=== PATIENT | male | born 1960 | race Caucasian/White ===

== ENCOUNTER 2017-07-26 12:57 | Emergency (ER) | payer BC, OTHER ==
--- NOTE | 2017-07-26 13:46 | ERPHSYRPT ---
- History of Present Illness Time Seen by Provider: 07/26/17 13:35 Historian: patient Exam Limitations: no limitations Patient Subjective Stated Complaint: Left sided abdominal pain with radiation into chest after eating. Triage Nursing Assessment: Pt presents to the ED with complaints of left sided abdominal pain with radiation into chest, nausea associated with pain. Pt denies chest pain on arrival. States pain began shortly after eating. No distress noted. Skin PWD. Physician History: 57 y/o male comes to the ER with acute onset left sided abdominal and chest pain that started this afternoon after eating. Pt states that he noticed a pressure on the left side of his chest and then on the left side of his abdomen. Pt describes the pain as sharp, intermittent, as high as 10/10 and upon arrival the pain went away. Pt denies any fever, chills, shortness of breath, dizziness, diarrhea, nausea, vomiting, constipation or urinary symptoms. Timing/Duration: today Activities at Onset: none Quality: sharpness Abdominal Pain Onset Location: LLQ Pain Radiation: chest Severity of Pain-Max: severe Severity of Pain-Current: none Modifying Factors: Improves With: nothing Associated Symptoms: denies symptoms Previous symptoms: no prior history Allergies/Adverse Reactions: No Known Drug Allergies Allergy (Verified 12/27/14 10:01) Home Medications: Hydrochlorothiazide 25 mg [hydroDIURIL 25 MG] 25 mg DAILY 06/03/14 [ History] Lisinopril 5 mg [Zestril 5 MG] 40 mg DAILY 06/03/14 [History] Albuterol Sulfate [Proventil Hfa] 2 puffs IH Q12H PRN PRN 12/27/14 [History] Esomeprazole Magnesium [Nexium 24Hr] 2 tab PO DAILY 12/27/14 [History] Atorvastatin Calcium 20 mg PO DAILY 07/26/17 [History] Hx Tetanus, Diphtheria Vaccination/Date Given: No Hx Influenza Vaccination/Date Given: No - Review of Systems Constitutional: No Fever, No Chills Eyes: No Symptoms Ears, Nose, & Throat: No Symptoms Respiratory: No Cough, No Dyspnea Cardiac: Chest Pain, No Edema, No Syncope Abdominal/Gastrointestinal: Abdominal Pain, No Nausea, No Vomiting, No Diarrhea Genitourinary Symptoms: No Dysuria Musculoskeletal: No Back Pain, No Neck Pain Skin: No Rash Neurological: No Dizziness, No Focal Weakness, No Sensory Changes Psychological: No Symptoms Endocrine: No Symptoms All Other Systems: Reviewed and Negative - Past Medical History Pertinent Past Medical History: Yes Neurological History: No Pertinent History ENT History: Cataracts Cardiac History: Hypertension Respiratory History: No Pertinent History Endocrine Medical History: No Pertinent History Musculoskeletal History: No Pertinent History GI Medical History: GERD History: No Pertinent History Psycho-Social History: No Pertinent History Male Reproductive Disorders: No Pertinent History Other Medical History: SEASONAL ALLERGIES, R eye possible cataract forming - Past Surgical History Past Surgical History: Yes Neuro Surgical History: No Pertinent History Cardiac: No Pertinent History Respiratory: No Pertinent History Gastrointestinal: Appendectomy Genitourinary: No Pertinent History Musculoskeletal: Joint Replacement, Other Male Surgical History: No Pertinent History Other Surgical History: Left broken arm surgical reppair, RIGHT HIP REPLACED 2013 - Social History Smoking Status: Former smoker How long have you smoked: 13 years + Exposure to second hand smoke: No Drug Use: none Patient Lives Alone: No - Nursing Vital Signs Nursing Vital Signs: Initial Vital Signs Temperature 97.8 F 07/26/17 12:58 Pulse Rate 93 H 07/26/17 12:58 Respiratory Rate 20 07/26/17 12:58 Blood Pressure 170/85 07/26/17 12:58 O2 Sat by Pulse Oximetry 99 07/26/17 12:58 Pain Scale Pain Intensity 0 - Physical Exam General Appearance: no apparent distress, alert Eye Exam: PERRL/EOMI, eyes nml inspection Ears, Nose, Throat Exam: normal ENT inspection, pharynx normal, moist mucous membranes Neck Exam: normal inspection, non-tender, supple, full range of motion Respiratory Exam: normal breath sounds, lungs clear, No chest tenderness, No respiratory distress Cardiovascular Exam: regular rate/rhythm, normal heart sounds Gastrointestinal/Abdomen Exam: soft, No tenderness, No mass Back Exam: normal inspection, normal range of motion, No CVA tenderness, No vertebral tenderness Extremity Exam: normal inspection, normal range of motion, pelvis stable Neurologic Exam: alert, oriented x 3, cooperative, normal mood/affect, nml cerebellar function, sensation nml, No motor deficits Skin Exam: normal color, warm, dry SpO2: 99 Oxygen Delivery: Room Air - Course Nursing assessment & vital signs reviewed: Yes EKG Interpreted by Me: RATE, NORMAL AXIS, NORMAL INTERVALS, NORMAL QRS, Non- specific ST Changes Ordered Tests: Active Orders 24 hr Category Date Time Status Monument Installer STAT Care 07/26/17 13:29 Active EKG-ER Only STAT Care 07/26/17 13:27 Active IV Insertion STAT Care 07/26/17 13:27 Active ABDOMEN AND PELVIS W&WO CONTRA [CT] Stat Exams 07/26/17 13:41 Completed CHEST 1 VIEW (PORTABLE) Stat Exams 07/26/17 13:28 Completed AMYLASE Stat Lab 07/26/17 13:40 Completed CBC W DIFF Stat Lab 07/26/17 13:27 Completed CMP Stat Lab 07/26/17 13:40 Completed D-DIMER QUANTITATION Stat Lab 07/26/17 13:40 Completed LIPASE Stat Lab 07/26/17 13:40 Completed TROPONIN Q3H Lab 07/26/17 13:40 Completed UA W/RFX UR CULTURE Stat Lab 07/26/17 13:42 Completed Medication Summary Discontinued Medications Generic Name Dose Route Start Last Admin Trade Name Freq PRN Reason Stop Dose Admin Ciprofloxacin 500 mg 07/26/17 15:38 07/26/17 15:47 Cipro 500 Mg PO 07/26/17 15:39 500 mg ONCE ONE Administration Ciprofloxacin Confirm 07/26/17 15:45 Cipro 500 Mg Administered 07/26/17 15:46 Dose 500 mg .ROUTE .STK-MED ONE Metronidazole 500 mg 07/26/17 15:38 07/26/17 15:47 Flagyl 500 Mg PO 07/26/17 15:39 500 mg STAT ONE Administration Metronidazole Confirm 07/26/17 15:46 Flagyl 500 Mg Administered 07/26/17 15:47 Dose 500 mg .ROUTE .STK-MED ONE Lab/Rad Data: Laboratory Result Diagrams 07/26/17 13:27 07/26/17 13:40 Laboratory Results 07/26/17 07/26/17 07/26/17 Range/Units 13:42 13:40 13:40 WBC (4.0-10.5) K/mm3 RBC (4.1-5.6) M/mm3 Hgb (12.5-18.0) gm/dl Hct (42-50) % MCV (78-100) fl MCH (26-32) pg MCHC (32-36) g/dl RDW (11.5-14.0) % Plt Count (150-450) K/mm3 MPV (6-9.5) fl Gran % (36.0-66.0) % Eos # (Auto) (0-0.5) Absolute Lymphs (auto) (1.0-4.6) Absolute Monos (auto) (0.0-1.3) Lymphocytes % (24.0-44.0) % Monocytes % (0.0-12.0) % Eosinophils % (0.00-5.0) % Basophils % (0.0-0.4) % Absolute Granulocytes (1.4-6.9) Basophils # (0-0.4) D-Dimer 353.28 (215-500) ng/mL Sodium (137-145) mmol/L Potassium (3.5-5.1) mmol/L Chloride (98-107) mmol/L Carbon Dioxide (22-30) mmol/L Anion Gap (5-15) MEQ/L BUN (9-20) mg/dL Creatinine (0.66-1.25) mg/dL Estimated GFR ML/MIN Glucose (74-106) mg/dL Calcium (8.4-10.2) mg/dL Total Bilirubin (0.2-1.3) mg/dL AST (17-59) U/L ALT (0-50) U/L Alkaline Phosphatase (38-126) U/L Troponin I < 0.012 (0.000-0.034) ng/mL Serum Total Protein (6.3-8.2) g/dL Albumin (3.5-5.0) g/dL Amylase (30-110) U/L Lipase (23-300) U/L Ur Collection Type VOID Urine Color YELLOW (YELLOW) Urine Appearance CLEAR (CLEAR) Urine pH 7.0 (5-6) Ur Specific [place] 1.005 (1.005-1.025) Urine Protein NEGATIVE (Negative) Urine Ketones NEGATIVE (NEGATIVE) Urine Blood NEGATIVE (0-5) Tray/ul Urine Nitrite NEGATIVE (NEGATIVE) Urine Bilirubin NEGATIVE (NEGATIVE) Urine Urobilinogen NORMAL (0-1) mg/dL Ur Leukocyte Esterase NEGATIVE (NEGATIVE) Urine Culture Reflexed NO (NO) Urine Glucose NEGATIVE (NEGATIVE) mg/dL Specimen Received 07/26/17 1425 07/26/17 07/26/17 Range/Units 13:40 13:27 WBC 6.5 (4.0-10.5) K/mm3 RBC 4.44 (4.1-5.6) M/mm3 Hgb 13.7 (12.5-18.0) gm/dl Hct 41.0 L (42-50) % MCV 92.3 (78-100) fl MCH 30.9 (26-32) pg MCHC 33.4 (32-36) g/dl RDW 13.1 (11.5-14.0) % Plt Count 223 (150-450) K/mm3 MPV 10.7 H (6-9.5) fl Gran % 65.5 (36.0-66.0) % Eos # (Auto) 0.11 (0-0.5) Absolute Lymphs (auto) 1.57 (1.0-4.6) Absolute Monos (auto) 0.54 (0.0-1.3) Lymphocytes % 24.0 (24.0-44.0) % Monocytes % 8.3 (0.0-12.0) % Eosinophils % 1.7 (0.00-5.0) % Basophils % 0.5 (0.0-0.4) % Absolute Granulocytes 4.28 (1.4-6.9) Basophils # 0.03 (0-0.4) D-Dimer (215-500) ng/mL Sodium 143 (137-145) mmol/L Potassium 4.0 (3.5-5.1) mmol/L Chloride 101 (98-107) mmol/L Carbon Dioxide 29 (22-30) mmol/L Anion Gap 16.9 H (5-15) MEQ/L BUN 11 (9-20) mg/dL Creatinine 0.79 (0.66-1.25) mg/dL Estimated GFR > 60.0 ML/MIN Glucose 115 H (74-106) mg/dL Calcium 9.9 (8.4-10.2) mg/dL Total Bilirubin 0.20 (0.2-1.3) mg/dL AST 22 (17-59) U/L ALT 23 (0-50) U/L Alkaline Phosphatase 78 (38-126) U/L Troponin I (0.000-0.034) ng/mL Serum Total Protein 7.9 (6.3-8.2) g/dL Albumin 4.7 (3.5-5.0) g/dL Amylase 99 (30-110) U/L Lipase 205 (23-300) U/L Ur Collection Type Urine Color (YELLOW) Urine Appearance (CLEAR) Urine pH (5-6) Ur Specific [place] (1.005-1.025) Urine Protein (Negative) Urine Ketones (NEGATIVE) Urine Blood (0-5) Tray/ul Urine Nitrite (NEGATIVE) Urine Bilirubin (NEGATIVE) Urine Urobilinogen (0-1) mg/dL Ur Leukocyte Esterase (NEGATIVE) Urine Culture Reflexed (NO) Urine Glucose (NEGATIVE) mg/dL Specimen Received - Progress Progress: improved Progress Note: 07/26/17 15:38 The patient has not had any pain since arriving to the ER. The CT abd/pelvis shows a mild diverticulitis and will be started on cipro and flagyl. The cardiac workup is within normal limits. - Departure Time of Disposition: 15:39 Departure Disposition: Home Clinical Impression: Diverticulitis, Atypical chest pain Condition: Stable Critical Care Time: No Referrals: MEHDI CRUZ MD [Primary Care Provider] - Instructions: Atypical Chest Pain, Diverticulitis (DC) Additional Instructions: Return to the ER if you should continue to have abdominal pain, chest pain, diarrhea, bloody stools, fever or chills. Finish the antibiotics until completion. Prescriptions: Ciprofloxacin [Cipro 500 MG] 500 mg PO BID #13 tablet Metronidazole 500 mg [Flagyl 500 MG] 500 mg PO BID #13 tablet
--- NOTE | 2017-07-26 13:53 | XRAY ---
Indication: Chest pain. Comparison: June 03, 2014. Portable apical lordotic chest again demonstrates normal heart and lungs. Bony thorax intact again with minimal degenerative changes. No new/acute findings.
[2017-07-26 14:10] LABS: BASOPHIL % 0.5 % (0.0-0.4); Basophil (Absolute #) 0.03 (0-0.4); Eosinophil % 1.7 % (0.00-5.0); Eosinophil (Absolute #) 0.11 (0-0.5); Granulocyte Absolute (ANC) 4.28 (1.4-6.9); Granulocytes % 65.5 % (36.0-66.0); Hemoglobin 13.7 gm/dl (12.5-18.0); Lymphocyte (Absolute #) 1.57 (1.0-4.6); Mean Cell Volume 92.3 fl (78-100); Mean Corpuscular Hemoglobin 30.9 pg (26-32); Mean Corpuscular Hgb Concent. 33.4 g/dl (32-36); Mean Platelet Volume 10.7 fl (6-9.5); Monocyte (Absolute #) 0.54 (0.0-1.3); Monocytes % 8.3 % (0.0-12.0); Platelet Count 223 K/mm3 (150-450); Red Blood Count 4.44 M/mm3 (4.1-5.6); Red Cell Distribution Width 13.1 % (11.5-14.0); White Blood Count 6.5 K/mm3 (4.0-10.5)
[2017-07-26 14:23] LABS: Appearance CLEAR (CLEAR); Specific Gravity 1.005 (1.005-1.025)
[2017-07-26 14:24] LABS: Bilirubin NEGATIVE (NEGATIVE); Blood NEGATIVE Ery/ul (0-5); Glucose NEGATIVE (NEGATIVE); Ketones NEGATIVE (NEGATIVE); Leukocyte Esterase NEGATIVE (NEGATIVE); Nitrite NEGATIVE (NEGATIVE); Protein,Urine Dip NEGATIVE (Negative); Urobilinogen NORMAL mg/dL (0-1)
[2017-07-26 14:27] LABS: ALBUMIN 4.7 g/dL (3.5-5.0); ALKALINE PHOSPHATASE 78 U/L (38-126); AMYLASE 99 U/L (30-110); ANION GAP 16.9 MEQ/L (5-15); BLOOD UREA NITROGEN 11 mg/dL (9-20); CHLORIDE 101 mmol/L (98-107); Calcium 9.9 mg/dL (8.4-10.2); Carbon Dioxide 29 mmol/L (22-30); Creatinine 1 0.79 mg/dL (0.66-1.25); Glucose 115 mg/dL (74-106); LIPASE 205 U/L (23-300); SGOT/AST 22 U/L (17-59); SGPT/ALT 23 U/L (0-50); SODIUM 143 mmol/L (137-145); Total Protein 7.9 g/dL (6.3-8.2)
--- NOTE | 2017-07-26 15:35 | XRAY ---
Indication: Left abdominal pain. Kidney stone versus diverticulitis. Multiple contiguous axial images obtained through the abdomen and pelvis prior to and following 80 cc Isovue 370 contrast. Comparison: None Lung bases demonstrates minimal bibasilar fibrosis/scarring. No infiltrate or effusion. Heart is not enlarged. Images through the pelvis are limited due to extreme beam artifact from bilateral hip prostheses. No renal calculus or evidence for obstructive uropathy in either kidneys or proximal ureters. Normal visceral enhancement and renal excretion. 2.3 cm left renal cyst. No suspicious solid renal mass or perinephric fluid/stranding. Noncontrasted stomach and bowel loops appear nonobstructed. Small 2.4 cm gastric diverticulum near the cardiac portion of the stomach. Previous reported appendectomy. Mild diffuse scattered colonic fecal debris throughout. Also scattered colonic diverticulosis greatest in the descending/sigmoid. Minimal diverticulitis junction of descending and sigmoid. No free fluid/air. Remaining liver, gallbladder, pancreas, spleen, adrenal glands, kidneys, ureters, and bladder appear unremarkable. Mild aortoiliac calcifications. No AAA or pathologic retroperitoneal lymphadenopathy. Osseous structures intact with mild multilevel degenerative spondylosis, greatest at the lumbosacral junction. Impression: 1. Images of the pelvis limited due to artifact from bilateral hip prostheses. 2. Negative renal calculus or evidence for obstructive uropathy. Left renal cyst. 3. Scattered colonic diverticulosis with minimal diverticulitis junction descending and sigmoid colon. No complications. 4. Mild fecal stasis without obstruction and small gastric diverticulum. 5. Remaining CT abdomen/pelvis with and without contrast exam is negative. CT DI 23.45
[2017-07-26] MEDS ORDERED: Flagyl 500 MG PO ONE (15:38)
[2017-07-26] MEDS ORDERED: Cipro 500 MG PO ONE (15:38)
[2017-07-26] MEDS ORDERED: Cipro 500 MG ONE (15:45)
[2017-07-26] MEDS ORDERED: Flagyl 500 MG ONE (15:46)
[2017-07-26 16:01] VITALS: BP 155/83; PULSE 68
[2017-07-26 16:37] VITALS: O2SAT 99
== END 2017-07-26 16:01 | disposition home or self-care (01) ==
LOC: ED 12:57
DX: K57.92 Diverticulitis of intestine, part unspecified, without perforation or abscess without bleeding (principal); R07.89 Other chest pain; Z79.899 Other long term (current) drug therapy
CPT/HCPCS: 36415; 71045; 74178; 80053; 81002; 82150; 83690; 84484; 85025; 85379; 93005; 93041; 99283; 99284; A9270-GY

== ENCOUNTER 2017-08-09 06:06 | Emergency (ER) | payer BC ==
--- NOTE | 2017-08-09 06:54 | ERPHSYRPT ---
- History of Present Illness Time Seen by Provider: 08/09/17 06:33 Source: patient Exam Limitations: no limitations Patient Subjective Stated Complaint: trying to have a BM generalized abdominal pain.. states rectum is coming out. Triage Nursing Assessment: alert and oriented distressed. staes abdominal pain and rectum coming ouot. abdomen soft non tender on palpation. no diifficulty with urination.. trying to have a BM and has been straining. Physician History: The patient is a 57-year-old male with his complaining of trying to have a bowel movement last night and now feels like there is tissue or his rectum has become exposed. He did not try to push it back in because he was afraid. He had a colonoscopy 8 years ago. He was scheduled to have another colonoscopy in May but had to change the plans. He is scheduled to see Dr. Cruz tomorrow to have a repeat colonoscopy. 2 weeks ago he was diagnosed by CT scan and clinically with diverticulitis and was taking metronidazole and ciprofloxacin. For the past 2 or 3 days he has had a diet high in liquids. Last night he was attempting to have bowel movements but instead was having a lot of gas. The colonoscopy 8 years ago found some minor polyps. His past medical history is significant for diverticulitis, appendicitis that had ruptured, colonic polyps, and hypertension. Timing/Duration: today Severity: mild Modifying Factors: Improves With: nothing Associated Symptoms: denies symptoms, No nausea, No vomiting Allergies/Adverse Reactions: No Known Drug Allergies Allergy (Verified 12/27/14 10:01) Home Medications: Hydrochlorothiazide 25 mg [hydroDIURIL 25 MG] 25 mg DAILY 06/03/14 [ History] Lisinopril 5 mg [Zestril 5 MG] 40 mg DAILY 06/03/14 [History] Albuterol Sulfate [Proventil Hfa] 2 puffs IH Q12H PRN PRN 12/27/14 [History] Esomeprazole Magnesium [Nexium 24Hr] 2 tab PO DAILY 12/27/14 [History] Atorvastatin Calcium 20 mg PO DAILY 07/26/17 [History] Hx Tetanus, Diphtheria Vaccination/Date Given: No Hx Influenza Vaccination/Date Given: No - Review of Systems Constitutional: No Fever, No Chills Eyes: No Symptoms Ears, Nose, & Throat: No Symptoms Respiratory: No Cough, No Dyspnea Cardiac: No Chest Pain, No Edema, No Syncope Abdominal/Gastrointestinal: Constipation, No Nausea, No Vomiting Genitourinary Symptoms: No Dysuria Musculoskeletal: No Back Pain, No Neck Pain Skin: No Rash Neurological: No Dizziness, No Focal Weakness, No Sensory Changes Psychological: No Symptoms Endocrine: No Symptoms Hematologic/Lymphatic: No Symptoms Immunological/Allergic: No Symptoms All Other Systems: Reviewed and Negative - Past Medical History Pertinent Past Medical History: Yes Neurological History: No Pertinent History ENT History: Cataracts Cardiac History: Hypertension Respiratory History: No Pertinent History Endocrine Medical History: No Pertinent History Musculoskeletal History: No Pertinent History GI Medical History: GERD History: No Pertinent History Psycho-Social History: No Pertinent History Male Reproductive Disorders: No Pertinent History Other Medical History: SEASONAL ALLERGIES, R eye possible cataract forming - Past Surgical History Past Surgical History: Yes Neuro Surgical History: No Pertinent History Cardiac: No Pertinent History Respiratory: No Pertinent History Gastrointestinal: Appendectomy Genitourinary: No Pertinent History Musculoskeletal: Joint Replacement, Other Male Surgical History: No Pertinent History Other Surgical History: Left broken arm surgical reppair, RIGHT HIP REPLACED 2013 - Social History Smoking Status: Former smoker How long have you smoked: 13 years + Exposure to second hand smoke: No Drug Use: none Patient Lives Alone: No - Nursing Vital Signs Nursing Vital Signs: Initial Vital Signs Temperature 97.7 F 08/09/17 06:10 Pulse Rate 88 08/09/17 06:10 Respiratory Rate 20 08/09/17 06:10 Blood Pressure 181/88 08/09/17 06:10 O2 Sat by Pulse Oximetry 100 08/09/17 06:10 Pain Scale Pain Intensity 4 - Physical Exam General Appearance: anxiety (Pt is anxious.) Eye Exam: PERRL/EOMI, eyes nml inspection Ears, Nose, Throat Exam: normal ENT inspection, TMs normal, pharynx normal, moist mucous membranes Neck Exam: normal inspection, non-tender, supple, full range of motion Respiratory Exam: normal breath sounds, lungs clear, No respiratory distress Cardiovascular Exam: regular rate/rhythm, normal heart sounds, normal peripheral pulses Gastrointestinal/Abdomen Exam: soft, other (BS are hyperactive. Abd is typanitic to percussion.), No tenderness Rectal Exam: normal rectal tone, hemorrhoids (Examination of the rectum shows numerous small prolapsed external hemorrhoids. No thrombosis was seen. Most of the hemorrhoids could be easily reduced with the patient noticing relief.) Back Exam: normal inspection, normal range of motion, No CVA tenderness, No vertebral tenderness Extremity Exam: normal inspection, normal range of motion, pelvis stable Neurologic Exam: alert, oriented x 3, cooperative, normal mood/affect, nml cerebellar function, nml station & gait, sensation nml, No motor deficits Skin Exam: normal color, warm, dry, No rash Lymphatic Exam: No adenopathy SpO2 Interpretation: normal SpO2: 100 Oxygen Delivery: Room Air - Progress Progress: improved Progress Note: 08/09/17 07:03 The hemorrhoids were manually reduced. An abdominal x-ray was offered but the patient declined. Counseled pt/family regarding: diagnosis, need for follow-up - Departure Time of Disposition: 07:02 Departure Disposition: Home Clinical Impression: Hemorrhoids, Hemorrhoids that prolapse with straining and require manual replacement back inside anal canal, Anxiety Condition: Stable Critical Care Time: No Referrals: MEHDI CRUZ MD [Primary Care Provider] - Additional Instructions: You had hemorrhoids that were prolapsed due to excessive straining to have a bowel movement. The hemorrhoids were reduced. In the future if you are having any difficulty with having a bowel movement, please after becoming well hydrated , take one bottle of magnesium citrate or similar preparation from over-the- counter. Follow-up tomorrow with Dr. Cruz as previously scheduled.
[2017-08-09 07:12] VITALS: BP 168/84; PULSE 84; O2SAT 98
== END 2017-08-09 07:11 | disposition home or self-care (01) ==
LOC: ED 06:06
DX: K64.2 Third degree hemorrhoids (principal); F41.9 Anxiety disorder, unspecified; Z79.899 Other long term (current) drug therapy
CPT/HCPCS: 99281; 99283

== ENCOUNTER 2017-08-19 16:37 | Observation (INO) | payer BC ==
[2017-08-19] MEDS ORDERED: Zofran 4 MG/2 ML VIAL IV ONE (17:17)
[2017-08-19] MEDS ORDERED: Sodium Chloride 0.9% 1000 ML 1,000 ML IV STA ×2 (17:19→18:21)
[2017-08-19] MEDS ORDERED: Hydromorphone 1 mg/ml Ampule IV ONE (17:19)
[2017-08-19] MEDS ORDERED: Zofran 4 MG/2 ML VIAL ONE (17:21)
--- NOTE | 2017-08-19 17:24 | ERPHSYRPT ---
- History of Present Illness Time Seen by Provider: 08/19/17 17:00 Historian: patient Exam Limitations: clinical condition Patient Subjective Stated Complaint: Pt states "I am still having abdominal problems. I was here for constipation recently and they told me to go home and drink mag citrate and i drank one of those and I had a little yellow diarrhea but that was it. It feels like my bowels are locked up. I drink lots of water , I eat fiber, nothing helps." Triage Nursing Assessment: Pt alert and oriented X 3, skin pwd Pt ambulates with an upright steady gait, able to speak in clear full sentences. PT in no apparent respiratory distress. Pt abdomen is soft non tender. Physician History: PATIENT WITH A HISTORY OF HYPERTENSION, AND ASTHMA COMPLAINS OF GENERALIZED ABDOMINAL PAIN X 4 WEEKS, TREATED AN OUTPATIENT WITH DIVERTICULITIS FOR 7 DAYS, 2-3 WEEKS AGO AND STATES PAIN IS PROGRESSIVELY WORSE. ALSO COMPLAINS OF CONSTIPATION, DENIES FEVER, EMESIS OR DIARRHEA OR URINARY SYMPTOMS. ADMITS TO DRINKING EXCESSIVE AMOUNTS OF WATER DAILY. Timing/Duration: week(s) Activities at Onset: none Quality: cramping, throbbing Abdominal Pain Onset Location: generalized abdomen Pain Radiation: no radiation Severity of Pain-Max: severe Severity of Pain-Current: severe Modifying Factors: Improves With: nothing Associated Symptoms: other (CONSTIPATION) Previous symptoms: same symptoms as today Allergies/Adverse Reactions: No Known Drug Allergies Allergy (Verified 12/27/14 10:01) Home Medications: Hydrochlorothiazide 25 mg [hydroDIURIL 25 MG] 25 mg DAILY 06/03/14 [ History] Lisinopril 5 mg [Zestril 5 MG] 40 mg DAILY 06/03/14 [History] Albuterol Sulfate [Proventil Hfa] 2 puffs IH Q12H PRN PRN 12/27/14 [History] Esomeprazole Magnesium [Nexium 24Hr] 2 tab PO DAILY 12/27/14 [History] Atorvastatin Calcium 20 mg PO DAILY 07/26/17 [History] Hx Tetanus, Diphtheria Vaccination/Date Given: Yes Hx Influenza Vaccination/Date Given: No Hx Pneumococcal Vaccination/Date Given: No Immunizations Up to Date: Yes - Review of Systems Constitutional: No Fever, No Chills Eyes: No Symptoms Ears, Nose, & Throat: No Symptoms Respiratory: No Symptoms, No Cough, No Dyspnea Cardiac: No Chest Pain, No Edema, No Syncope Abdominal/Gastrointestinal: Abdominal Pain, No Nausea, No Vomiting, No Diarrhea Genitourinary Symptoms: No Symptoms, No Dysuria Musculoskeletal: No Symptoms, No Back Pain, No Neck Pain Skin: No Symptoms, No Rash Neurological: No Dizziness, No Focal Weakness, No Sensory Changes Psychological: No Symptoms Endocrine: No Symptoms All Other Systems: Reviewed and Negative - Past Medical History Pertinent Past Medical History: Yes Neurological History: No Pertinent History ENT History: Cataracts Cardiac History: Hypertension Respiratory History: No Pertinent History Endocrine Medical History: No Pertinent History Musculoskeletal History: No Pertinent History GI Medical History: GERD History: No Pertinent History Psycho-Social History: No Pertinent History Male Reproductive Disorders: No Pertinent History Other Medical History: SEASONAL ALLERGIES, R eye possible cataract forming - Past Surgical History Past Surgical History: Yes Neuro Surgical History: No Pertinent History Cardiac: No Pertinent History Respiratory: No Pertinent History Gastrointestinal: Appendectomy Genitourinary: No Pertinent History Musculoskeletal: Joint Replacement, Other Male Surgical History: No Pertinent History Other Surgical History: Left broken arm surgical reppair, RIGHT HIP REPLACED 2013 - Social History Smoking Status: Former smoker How long have you smoked: 13 years + Exposure to second hand smoke: Yes Drug Use: none Patient Lives Alone: No - Nursing Vital Signs Nursing Vital Signs: Initial Vital Signs Temperature 98.7 F 08/19/17 16:42 Pulse Rate 84 08/19/17 16:42 Respiratory Rate 18 08/19/17 16:42 Blood Pressure 171/86 08/19/17 16:42 O2 Sat by Pulse Oximetry 100 08/19/17 16:42 Pain Scale Pain Intensity 2 - Physical Exam General Appearance: moderate distress Eye Exam: PERRL/EOMI, eyes nml inspection Ears, Nose, Throat Exam: normal ENT inspection, pharynx normal, moist mucous membranes Neck Exam: normal inspection, non-tender, supple, full range of motion Respiratory Exam: normal breath sounds, lungs clear, No respiratory distress Cardiovascular Exam: regular rate/rhythm, normal heart sounds Gastrointestinal/Abdomen Exam: soft, normal bowel sounds, tenderness ( PERIUMBILICAL TENDERNESS, NO GUARDING OR REBOUND TENDERNESS.) Back Exam: normal inspection, normal range of motion, No CVA tenderness, No vertebral tenderness SpO2: 100 Oxygen Delivery: Room Air - CT Exams Abdomen/Pelvis CT Interpretation: Tele-radiologist Report (no evidence of acute intra- abdominal or pelvic pathology) Ordered Tests: Active Orders 24 hr Category Date Time Status Up Ad Zari ROUTINE Activity 08/19/17 23:19 Ordered Call Admit Doctor for Orders ON ADMISSION Care 08/19/17 23:18 Ordered Code Status Order ROUTINE Care 08/19/17 23:17 Ordered IV Care Q6H Care 08/19/17 23:17 Ordered IV Insertion STAT Care 08/19/17 17:17 Active Intake and Output Q12H Care 08/19/17 23:17 Ordered Oxygen-ED Only NASAL CANNULA 2 lpm Care 08/19/17 17:[address] in Observation ROUTINE Care 08/19/17 23:17 Ordered Vital Signs Q4H Care 08/19/17 23:17 Ordered Clear Liquid Diet 08/19/17 Breakfast Ordered ABDOMEN AND PELVIS W CONTRAST [CT] Stat Exams 08/19/17 17:17 Taken AMYLASE Stat Lab 08/19/17 17:30 Completed BLOOD CULTURE Stat Lab 08/19/17 17:40 Received BMP AM.LAB Lab 08/20/17 04:00 Ordered BMP Stat Lab 08/19/17 20:31 Completed CBC W DIFF AM.LAB Lab 08/20/17 04:00 Ordered CBC W DIFF Stat Lab 08/19/17 17:30 Completed CMP Stat Lab 08/19/17 17:30 Completed LIPASE Stat Lab 08/19/17 17:30 Completed MAGNESIUM Stat Lab 08/19/17 18:00 Completed Occult Blood,Stool Other Stat Lab 08/19/17 17:30 Completed UA W/RFX UR CULTURE Stat Lab 08/19/17 18:21 Completed Oxygen NASAL CANNULA 2 lpm RT 08/19/17 23:17 Ordered Pulse Oximetry CONTINUOUS RT 08/19/17 23:19 Ordered Transfer Order Routine Transfer 08/19/17 Ordered Medication Summary Discontinued Medications Generic Name Dose Route Start Last Admin Trade Name Freq PRN Reason Stop Dose Admin Hydromorphone HCl 1 mg 08/19/17 17:19 08/19/17 17:33 Hydromorphone 1 Mg/Ml Ampule IV 08/19/17 17:20 1 mg STAT ONE Administration Hydromorphone HCl Confirm 08/19/17 17:32 Dilaudid 2 Mg Injection Administered 08/19/17 17:33 Dose 2 mg .ROUTE .STK-MED ONE Sodium Chloride 1,000 mls @ 250 mls/hr 08/19/17 17:19 08/19/17 17:32 Sodium Chloride 0.9% 1000 Ml IV 08/19/17 21:18 250 mls/hr .Q4H STA Administration Sodium Chloride Confirm 08/19/17 17:31 Sodium Chloride 0.9% 1000 Ml Administered 08/19/17 17:32 Dose 1,000 mls @ ud .ROUTE .STK-MED ONE Sodium Chloride 1,000 mls @ 999 mls/hr 08/19/17 18:21 08/19/17 19:11 Sodium Chloride 0.9% 1000 Ml IV 08/19/17 19:21 999 mls/hr .Q1H1M STA Administration Sodium Chloride Confirm 08/19/17 19:10 Sodium Chloride 0.9% 1000 Ml Administered 08/19/17 19:11 Dose 1,000 mls @ ud .ROUTE .STK-MED ONE Ondansetron HCl 4 mg 08/19/17 17:17 08/19/17 17:32 Zofran 4 Mg/2 Ml Vial IV 08/19/17 17:18 4 mg STAT ONE Administration Ondansetron HCl Confirm 08/19/17 17:21 Zofran 4 Mg/2 Ml Vial Administered 08/19/17 17:22 Dose 4 mg .ROUTE .STK-MED ONE Lab/Rad Data: Laboratory Result Diagrams 08/19/17 17:30 08/19/17 20:31 Laboratory Results 08/19/17 08/19/17 08/19/17 Range/Units 20:31 18:21 18:00 WBC (4.0-10.5) K/mm3 RBC (4.1-5.6) M/mm3 Hgb (12.5-18.0) gm/dl Hct (42-50) % MCV (78-100) fl MCH (26-32) pg MCHC (32-36) g/dl RDW (11.5-14.0) % Plt Count (150-450) K/mm3 MPV (6-9.5) fl Gran % (36.0-66.0) % Eos # (Auto) (0-0.5) Absolute Lymphs (auto) (1.0-4.6) Absolute Monos (auto) (0.0-1.3) Lymphocytes % (24.0-44.0) % Monocytes % (0.0-12.0) % Eosinophils % (0.00-5.0) % Basophils % (0.0-0.4) % Absolute Granulocytes (1.4-6.9) Basophils # (0-0.4) Sodium 125 L (137-145) mmol/L Potassium 3.3 L (3.5-5.1) mmol/L Chloride 89 L (98-107) mmol/L Carbon Dioxide 24 (22-30) mmol/L Anion Gap 15.0 (5-15) MEQ/L BUN 6 L (9-20) mg/dL Creatinine 0.68 (0.66-1.25) mg/dL Estimated GFR > 60.0 ML/MIN Glucose 98 (74-106) mg/dL Calcium 8.8 (8.4-10.2) mg/dL Magnesium 1.9 (1.6-2.3) mg/dL Total Bilirubin (0.2-1.3) mg/dL AST (17-59) U/L ALT (0-50) U/L Alkaline Phosphatase (38-126) U/L Serum Total Protein (6.3-8.2) g/dL Albumin (3.5-5.0) g/dL Amylase (30-110) U/L Lipase (23-300) U/L Ur Collection Type VOID Urine Color LT.YELLOW (YELLOW) Urine Appearance CLEAR (CLEAR) Urine pH 8.0 (5-6) Ur Specific [place] 1.005 (1.005-1.025) Urine Protein NEGATIVE (Negative) Urine Ketones SMALL (NEGATIVE) Urine Blood NEGATIVE (0-5) Tray/ul Urine Nitrite NEGATIVE (NEGATIVE) Urine Bilirubin NEGATIVE (NEGATIVE) Urine Urobilinogen NORMAL (0-1) mg/dL Ur Leukocyte Esterase NEGATIVE (NEGATIVE) Urine Culture Reflexed NO (NO) Urine Glucose NEGATIVE (NEGATIVE) mg/dL Stool Occult Blood (Negative) Specimen Received 08/19/17 1820 08/19/17 08/19/17 08/19/17 Range/Units 17:30 17:30 17:30 WBC 8.1 (4.0-10.5) K/mm3 RBC 4.54 (4.1-5.6) M/mm3 Hgb 14.1 (12.5-18.0) gm/dl Hct 39.3 L (42-50) % MCV 86.6 (78-100) fl MCH 31.1 (26-32) pg MCHC 35.9 (32-36) g/dl RDW 12.0 (11.5-14.0) % Plt Count 224 (150-450) K/mm3 MPV 9.9 H (6-9.5) fl Gran % 61.0 (36.0-66.0) % Eos # (Auto) 0.07 (0-0.5) Absolute Lymphs (auto) 2.31 (1.0-4.6) Absolute Monos (auto) 0.76 (0.0-1.3) Lymphocytes % 28.4 (24.0-44.0) % Monocytes % 9.3 (0.0-12.0) % Eosinophils % 0.9 (0.00-5.0) % Basophils % 0.4 (0.0-0.4) % Absolute Granulocytes 4.96 (1.4-6.9) Basophils # 0.03 (0-0.4) Sodium 118 L* (137-145) mmol/L Potassium 3.5 (3.5-5.1) mmol/L Chloride 79 L (98-107) mmol/L Carbon Dioxide 26 (22-30) mmol/L Anion Gap 16.2 H (5-15) MEQ/L BUN 6 L (9-20) mg/dL Creatinine 0.69 (0.66-1.25) mg/dL Estimated GFR > 60.0 ML/MIN Glucose 117 H (74-106) mg/dL Calcium 9.5 (8.4-10.2) mg/dL Magnesium (1.6-2.3) mg/dL Total Bilirubin 0.80 (0.2-1.3) mg/dL AST 23 (17-59) U/L ALT 29 (0-50) U/L Alkaline Phosphatase 79 (38-126) U/L Serum Total Protein 7.6 (6.3-8.2) g/dL Albumin 4.7 (3.5-5.0) g/dL Amylase 77 (30-110) U/L Lipase 147 (23-300) U/L Ur Collection Type Urine Color (YELLOW) Urine Appearance (CLEAR) Urine pH (5-6) Ur Specific [place] (1.005-1.025) Urine Protein (Negative) Urine Ketones (NEGATIVE) Urine Blood (0-5) Tray/ul Urine Nitrite (NEGATIVE) Urine Bilirubin (NEGATIVE) Urine Urobilinogen (0-1) mg/dL Ur Leukocyte Esterase (NEGATIVE) Urine Culture Reflexed (NO) Urine Glucose (NEGATIVE) mg/dL Stool Occult Blood NEGATIVE (Negative) Specimen Received - Progress Progress Note: 08/19/17 17:31 IV NORMAL SALINE 250ML/HR, ZOFRAN 4MG, DILAUDID 1MG IV, ADMINISTERED 2 LITERS NORMAL SALINE OVER 2 HOURS FOR HYPONATREMIA NA-118, IMPROVED TO NA-125 08/19/17 23:11 Discussed with : Man (DISCUSSED WITH DR MCCRACKEN AT 2300 FOR OBSERVATION) - Departure Time of Disposition: 23:19 Departure Disposition: Observation Clinical Impression: INTRACTABLE ABDOMINAL PAIN, HYPONATREMIA Condition: Stable Critical Care Time: No Referrals: MEHDI CRUZ MD [Primary Care Provider] -
[2017-08-19] MEDS ORDERED: Sodium Chloride 0.9% 1000 ML 1,000 ML ONE ×2 (17:31→19:10)
[2017-08-19] MEDS ORDERED: DILAUDID 2 MG INJECTION ONE (17:32)
[2017-08-19 17:52] LABS: BASOPHIL % 0.4 % (0.0-0.4); Basophil (Absolute #) 0.03 (0-0.4); Eosinophil % 0.9 % (0.00-5.0); Eosinophil (Absolute #) 0.07 (0-0.5); Granulocyte Absolute (ANC) 4.96 (1.4-6.9); Hematocrit 39.3 % (42-50); Hemoglobin 14.1 gm/dl (12.5-18.0); Lymphocyte (Absolute #) 2.31 (1.0-4.6); Lymphocytes % 28.4 % (24.0-44.0); Mean Cell Volume 86.6 fl (78-100); Mean Corpuscular Hemoglobin 31.1 pg (26-32); Mean Corpuscular Hgb Concent. 35.9 g/dl (32-36); Mean Platelet Volume 9.9 fl (6-9.5); Monocyte (Absolute #) 0.76 (0.0-1.3); Monocytes % 9.3 % (0.0-12.0); Platelet Count 224 K/mm3 (150-450); Red Blood Count 4.54 M/mm3 (4.1-5.6); White Blood Count 8.1 K/mm3 (4.0-10.5)
[2017-08-19 18:12] LABS: ALBUMIN 4.7 g/dL (3.5-5.0); ALKALINE PHOSPHATASE 79 U/L (38-126); AMYLASE 77 U/L (30-110); ANION GAP 16.2 MEQ/L (5-15); BLOOD UREA NITROGEN 6 mg/dL (9-20); CHLORIDE 79 mmol/L (98-107); Calcium 9.5 mg/dL (8.4-10.2); Carbon Dioxide 26 mmol/L (22-30); Creatinine 1 0.69 mg/dL (0.66-1.25); Glucose 117 mg/dL (74-106); LIPASE 147 U/L (23-300); Potassium 3.5 mmol/L (3.5-5.1); SGOT/AST 23 U/L (17-59); SGPT/ALT 29 U/L (0-50); Total Protein 7.6 g/dL (6.3-8.2)
[2017-08-19 18:14] LABS: SODIUM 118 mmol/L (137-145)
[2017-08-19 18:32] LABS: Appearance CLEAR (CLEAR); Bilirubin NEGATIVE (NEGATIVE); Blood NEGATIVE Ery/ul (0-5); Glucose NEGATIVE (NEGATIVE); Ketones SMALL (NEGATIVE); Leukocyte Esterase NEGATIVE (NEGATIVE); Nitrite NEGATIVE (NEGATIVE); Protein,Urine Dip NEGATIVE (Negative); Specific Gravity 1.005 (1.005-1.025); Urobilinogen NORMAL mg/dL (0-1)
[2017-08-19 20:59] LABS: BLOOD UREA NITROGEN 6 mg/dL (9-20); CHLORIDE 89 mmol/L (98-107); Calcium 8.8 mg/dL (8.4-10.2); Carbon Dioxide 24 mmol/L (22-30); Creatinine 1 0.68 mg/dL (0.66-1.25); Glucose 98 mg/dL (74-106); Potassium 3.3 mmol/L (3.5-5.1); SODIUM 125 mmol/L (137-145)
[2017-08-19] MEDS ORDERED: TYLENOL 325 MG PO PRN (23:17)
[2017-08-19] MEDS ORDERED: DUONEB 0.5-3 MG/3 ml Neb IH PRN (23:17)
[2017-08-19] MEDS ORDERED: DILAUDID 2 MG INJECTION IV PRN (23:17)
[2017-08-19] MEDS ORDERED: Zofran 4 MG/2 ML VIAL IV PRN (23:17)
[2017-08-19] MEDS ORDERED: Zestril 10 MG PO STA (23:22)
[2017-08-19] MEDS ORDERED: PROVENTIL COMMON CANISTER IH PRN (23:58)
[2017-08-20] MEDS: Sodium Chloride 0.9% W/ 20 mEq KCl/LITER 1,000 ML IV SCH ×2 (00:51→10:22)
[2017-08-20 04:56] VITALS: O2SAT 99
[2017-08-20 05:50] LABS: BASOPHIL % 0.3 % (0.0-0.4); Basophil (Absolute #) 0.02 (0-0.4); Eosinophil % 1.6 % (0.00-5.0); Eosinophil (Absolute #) 0.11 (0-0.5); Granulocyte Absolute (ANC) 3.84 (1.4-6.9); Granulocytes % 57.4 % (36.0-66.0); Hematocrit 40.2 % (42-50); Hemoglobin 14.1 gm/dl (12.5-18.0); Lymphocyte (Absolute #) 1.87 (1.0-4.6); Lymphocytes % 27.9 % (24.0-44.0); Mean Cell Volume 88.2 fl (78-100); Mean Corpuscular Hemoglobin 30.9 pg (26-32); Mean Corpuscular Hgb Concent. 35.1 g/dl (32-36); Mean Platelet Volume 10.1 fl (6-9.5); Monocyte (Absolute #) 0.86 (0.0-1.3); Monocytes % 12.8 % (0.0-12.0); Platelet Count 215 K/mm3 (150-450); Red Blood Count 4.56 M/mm3 (4.1-5.6); Red Cell Distribution Width 12.4 % (11.5-14.0); White Blood Count 6.7 K/mm3 (4.0-10.5)
[2017-08-20 05:55] LABS: ANION GAP 14.9 MEQ/L (5-15); BLOOD UREA NITROGEN 5 mg/dL (9-20); CHLORIDE 93 mmol/L (98-107); Calcium 9.3 mg/dL (8.4-10.2); Carbon Dioxide 28 mmol/L (22-30); Glucose 111 mg/dL (74-106); Potassium 4.3 mmol/L (3.5-5.1); SODIUM 132 mmol/L (137-145)
--- NOTE | 2017-08-20 08:35 | XRAY ---
Indication: Bilateral lower abdominal pain one month. History diverticulitis. Multiple contiguous axial images obtained through the abdomen and pelvis using 80cc Isovue 370 contrast only. Comparison: July 26, 2017. Lung bases again demonstrates minimal bibasilar fibrosis/scarring. No infiltrate or effusion. Heart is not enlarged. Images through the pelvis are again limited due to extreme beam artifact from bilateral hip prostheses. Normal visceral enhancement and renal excretion. Stable left renal cyst. Noncontrasted stomach and bowel loops appear nonobstructed. Stable small gastric diverticulum. Previous reported appendectomy. Stable scattered colonic diverticulosis. No evidence of diverticulitis. No free fluid/air. Remaining liver, gallbladder, pancreas, spleen, adrenal glands, kidneys, ureters, and bladder appear unremarkable. Mild aortoiliac calcifications. No AAA or pathologic retroperitoneal lymphadenopathy. Osseous structures intact with mild multilevel degenerative spondylosis, greatest at the lumbosacral junction. Impression: 1. Images of the pelvis again limited due to artifact from bilateral hip prosthesis. 2. Again scattered colonic diverticulosis. No evidence for diverticulitis. 3. Stable small gastric diverticulum and left renal cyst. 4. No new or acute intra-abdominal/pelvic abnormalities. Comment: Preliminary interpretation was made by [facility]. No discrepancy. CT DI 23.03
[2017-08-20] MEDS ORDERED: PROTONIX 40 MG IV IV SCH (10:00)
[2017-08-20 11:40] VITALS: BP 125/74; PULSE 67
--- NOTE | 2017-08-20 11:44 | PCM.SSS ---
History of Present Illness - Chief Complaint Chief Complaint: INTRACTABLE ABDOMINAL PAIN History of Present Illness: is a 57 year old male pt of Dr. Cruz with long hx chronic abd issues who was admitted last night after 3d of increasing abd pain and decreased bowel movements. He was not passing flatus last night and was worried that he might have a blockage so came to the ER. He was having generalized abd pain that moved from place to place, 4-10/10. Increased burping. He had increased his water intake to about three 8 oz glasses all day long. He was found to have low sodium and his abd pain was difficult to control so he was admitted for pain control and hyponatremia. Denies fever or vomiting. He states that last night he started passing flatus, passed it all night long and is feeling much better this morning. He tolerated breakfast but would like to make sure he's not going to vomit before he goes home. - Review of Systems Ears, Nose, & Throat: Nose Congestion, Nose Discharge, Sinus Drainage Abdominal/Gastrointestinal: Abdominal Pain, Nausea, No Vomiting, No Diarrhea Psychological: Anxiety, No Depression, No Suicidal Ideations All Other Systems: Reviewed and Negative Medications & Allergies Home Medications: Home Medication List Hydrochlorothiazide 25 mg [hydroDIURIL 25 MG] 25 mg DAILY 06/03/14 [ History Confirmed 08/19/17] Lisinopril 5 mg [Zestril 5 MG] 40 mg DAILY 06/03/14 [History Confirmed 08/03] Albuterol Sulfate [Proventil Hfa] 2 puffs IH Q12H PRN PRN 12/27/14 [History Confirmed 08/19/17] Esomeprazole Magnesium [Nexium 24Hr] 2 tab PO DAILY 12/27/14 [History Confirmed 08/19/17] Atorvastatin Calcium 20 mg PO DAILY 07/26/17 [History Confirmed 08/19/17] Allergies/Adverse Reactions: Allergies Allergy/AdvReac Type Severity Reaction Status Date / Time No Known Drug Allergies Allergy Verified 12/27/14 10:01 - Past Medical History Past Medical History: Yes Neurological History: No Pertinent History ENT History: Cataracts Cardiac History: Hypertension Respiratory History: No Pertinent History Endocrine Medical History: No Pertinent History Musculoskelatal History: No Pertinent History GI Medical History: GERD History: No Pertinent History Pyscho-Social History: No Pertinent History Male Reproductive Disorders: No Pertinent History Comment: SEASONAL ALLERGIES, R eye possible cataract forming - Past Surgical History Past Surgical History: Yes Neuro Surgical History: No Pertinent History Cardiac History: No Pertinent History Respiratory Surgery: No Pertinent History GI Surgical History: Appendectomy Genitourinary Surgical Hx: No Pertinent History Musculskeletal Surgical Hx: Joint Replacement, Other Male Surgical History: No Pertinent History Other Surgical History: Left broken arm surgical repair, RIGHT HIP REPLACED 2013 - Social History Smoking Status: Former smoker How long have you smoked: 13 years + Exposure to second hand smoke: Yes Alcohol: None Drug Use: none - Physical Exam Vital Signs: Vital Signs - 24 hr Temp Pulse Resp BP Pulse Ox 08/20/17 07:23 98.1 F 66 18 121/64 99 08/20/17 04:00 97.7 F 65 18 111/68 99 08/20/17 00:09 97.9 F 69 17 133/67 98 08/19/17 23:44 69 17 98 08/19/17 23:23 100 08/19/17 23:17 97.6 F 70 140/72 100 08/19/17 20:54 97.6 F 72 16 145/73 98 08/19/17 19:53 82 18 146/84 98 08/19/17 19:14 97.8 F 70 16 122/68 98 08/19/17 17:39 98.6 F 72 16 136/76 99 08/19/17 16:42 98.7 F 84 18 171/86 100 General Appearance: no apparent distress, alert, obese Neurologic Exam: oriented x 3, cooperative Eye Exam: other (eyes clear watery at times) Ears, Nose, Throat Exam: moist mucous membranes Neck Exam: normal inspection, non-tender, No lymphadenopathy Respiratory Exam: normal breath sounds, lungs clear, No crackles/rales, No rhonchi, No wheezing Cardiovascular Exam: regular rate/rhythm, normal heart sounds, No murmur Gastrointestinal/Abdomen Exam: soft, normal bowel sounds, other (ventral hernia present), No tenderness, No distention, No mass, No guarding, No rebound Extremity Exam: normal inspection, No pedal edema, No swelling Skin Exam: normal color, warm, dry, No rash Results - Labs Lab/Micro Results: Lab Results-Last 24 Hours 08/20/17 08/20/17 Range/Units 05:25 05:25 WBC 6.7 (4.0-10.5) K/mm3 RBC 4.56 (4.1-5.6) M/mm3 Hgb 14.1 (12.5-18.0) gm/dl Hct 40.2 L (42-50) % MCV 88.2 (78-100) fl MCH 30.9 (26-32) pg MCHC 35.1 (32-36) g/dl RDW 12.4 (11.5-14.0) % Plt Count 215 (150-450) K/mm3 MPV 10.1 H (6-9.5) fl Gran % 57.4 (36.0-66.0) % Eos # (Auto) 0.11 (0-0.5) Absolute Lymphs (auto) 1.87 (1.0-4.6) Absolute Monos (auto) 0.86 (0.0-1.3) Lymphocytes % 27.9 (24.0-44.0) % Monocytes % 12.8 H (0.0-12.0) % Eosinophils % 1.6 (0.00-5.0) % Basophils % 0.3 (0.0-0.4) % Absolute Granulocytes 3.84 (1.4-6.9) Basophils # 0.02 (0-0.4) Sodium 132 L (137-145) mmol/L Potassium 4.3 (3.5-5.1) mmol/L Chloride 93 L (98-107) mmol/L Carbon Dioxide 28 (22-30) mmol/L Anion Gap 14.9 (5-15) MEQ/L BUN 5 L (9-20) mg/dL Creatinine 0.70 (0.66-1.25) mg/dL Estimated GFR > 60.0 ML/MIN Glucose 111 H (74-106) mg/dL Calcium 9.3 (8.4-10.2) mg/dL - Other Procedures and Tests Respiratory Therapy 08/19/17 23:58 Respiratory MDI PRN Assessment/Plan (1) Hyponatremia Current Visit: Yes Status: Acute Onset Date: ~08/19/17 Assessment & Plan: Discussed ok to add 1-2 glasses of water to normal fluids if feels necessary but at nowhere near the dangerous level of water he was previously ingesting. Code(s): E87.1 - HYPO-OSMOLALITY AND HYPONATREMIA (2) Intractable abdominal pain Current Visit: Yes Status: Acute Onset Date: ~08/19/17 Assessment & Plan: acute on chronic pain; this intractable acute pain has resolved. Appears to have just been gas. I think also related to the excessive anxiety and water intake; pt was trying to encourage BMs but is definitely NOT constipated. Home today after tolerating po. Will f/u with Dr. Cruz with colonoscopy. Code(s): R10.9 - UNSPECIFIED ABDOMINAL PAIN Hospital Summary - Hospital Course Hospital Course: is a 57 year old male pt of Dr. Cruz with long hx chronic abd issues who was admitted last night after 3d of increasing abd pain and decreased bowel movements. He was not passing flatus last night and was worried that he might have a blockage so came to the ER. He was having generalized abd pain that moved from place to place, 4-10/10. Increased burping. He had increased his water intake to about three 8 oz glasses all day long. He was found to have low sodium and his abd pain was difficult to control so he was admitted for pain control and hyponatremia. Denies fever or vomiting. He states that last night he started passing flatus, passed it all night long and is feeling much better this morning. He tolerated breakfast but would like to make sure he's not going to vomit before he goes home. His sodium is up to 132 this morning. His potassium is 4.3. He has been afebrile. His CT in the ER was negative for any acute process; no excessive stool or constipation noted. Diverticulosis without diverticulitis. However there was bilateral hip artifact. If he tolerates po well, ok to d/c home today. He will f/u with Dr. Cruz (has colonoscopy planned 09/01/17). Discussed possibly starting on a probiotic. - Vitals & Intake/Output Vital Signs: Vital Signs Temperature 98.1 F 08/20/17 07:23 Pulse Rate 66 08/20/17 07:23 Respiratory Rate 18 08/20/17 07:23 Blood Pressure 121/64 08/20/17 07:23 O2 Sat by Pulse Oximetry 99 08/20/17 07:23 Intake & Output: Intake & Output 08/17/17 08/18/17 08/19/17/05/18 11:59 11:59 11:59 11:59 Intake Total 1406 Output Total 1000 Balance 406 Weight 105.7 kg - Lab Result Diagrams: 08/20/17 05:25 08/20/17 05:25 Lab Results-Last 24 Hrs: Lab Results-Last 24 Hours 08/20/17 08/20/17 Range/Units 05:25 05:25 WBC 6.7 (4.0-10.5) K/mm3 RBC 4.56 (4.1-5.6) M/mm3 Hgb 14.1 (12.5-18.0) gm/dl Hct 40.2 L (42-50) % MCV 88.2 (78-100) fl MCH 30.9 (26-32) pg MCHC 35.1 (32-36) g/dl RDW 12.4 (11.5-14.0) % Plt Count 215 (150-450) K/mm3 MPV 10.1 H (6-9.5) fl Gran % 57.4 (36.0-66.0) % Eos # (Auto) 0.11 (0-0.5) Absolute Lymphs (auto) 1.87 (1.0-4.6) Absolute Monos (auto) 0.86 (0.0-1.3) Lymphocytes % 27.9 (24.0-44.0) % Monocytes % 12.8 H (0.0-12.0) % Eosinophils % 1.6 (0.00-5.0) % Basophils % 0.3 (0.0-0.4) % Absolute Granulocytes 3.84 (1.4-6.9) Basophils # 0.02 (0-0.4) Sodium 132 L (137-145) mmol/L Potassium 4.3 (3.5-5.1) mmol/L Chloride 93 L (98-107) mmol/L Carbon Dioxide 28 (22-30) mmol/L Anion Gap 14.9 (5-15) MEQ/L BUN 5 L (9-20) mg/dL Creatinine 0.70 (0.66-1.25) mg/dL Estimated GFR > 60.0 ML/MIN Glucose 111 H (74-106) mg/dL Calcium 9.3 (8.4-10.2) mg/dL - Procedures and Test Procedures and Tests throughout Hospitalization: Therapy Orders & Screens 08/19/17 23:58 Respiratory MDI PRN Comment: ALBUTEROL 2 PUFFS Q4HPRN FOR SOB/WHEEZING Diagnosis: INTRACTABLE ABDOMINAL PAIN 08/19/17 23:59 Respiratory Therapy Consult ROUTINE Comment: Reason For Exam: Diagnosis: INTRACTABLE ABDOMINAL PAIN - Discharge Disposition: Home, Self-Care Condition: Good Prescriptions: Continue Lisinopril 5 mg [Zestril 5 MG] 40 mg DAILY Hydrochlorothiazide 25 mg [hydroDIURIL 25 MG] 25 mg DAILY Albuterol Sulfate [Proventil Hfa] 2 puffs IH Q12H PRN PRN PRN Reason: Allergies Esomeprazole Magnesium [Nexium 24Hr] 2 tab PO DAILY Atorvastatin Calcium 20 mg PO DAILY Follow up with: MEHDI CRUZ MD [Primary Care Provider] - 1 Week
[2017-08-20] MEDS ORDERED: hydroDIURIL 25 MG PO SCH (12:15)
[2017-08-20] MEDS ORDERED: Zestril 20 MG PO SCH (12:15)
[2017-08-20] MEDS ORDERED: ZOCOR 20MG PO SCH (22:00)
[2017-08-21] MEDS ORDERED: ESOMEPRAZOLE MAGNESIUM PO SCH (10:00)
[2017-08-21] MEDS ORDERED: NON-FORMULARY ITEM (Atorvastatin Calcium [Atorvastatin Calcium] 20 MG) PO SCH (10:00)
[2017-08-21] MEDS ORDERED: Protonix 40MG Tablet PO SCH (10:00)
== END 2017-08-20 13:00 | disposition home or self-care (01) ==
LOC: ED 16:37 → MED SURG 23:34
PROVIDERS: ADMIT Family Medicine; ATTEND Family Medicine
DX: E87.1 Hypo-osmolality and hyponatremia (principal); R10.9 Unspecified abdominal pain; I10 Essential (primary) hypertension; K21.9 Gastro-esophageal reflux disease without esophagitis; Z87.891 Personal history of nicotine dependence; Z79.899 Other long term (current) drug therapy
CPT/HCPCS: 36415; 74177; 80048; 80053; 81002; 82150; 82272; 83690; 83735; 85025; 87040; 94760; 96360; 96361; 96375; 99285; G0378; 36000; 96374; 99284; J1170; J2405; A9270-GY

== ENCOUNTER 2017-08-24 09:14 | Emergency (ER) | payer BC ==
--- NOTE | 2017-08-24 09:40 | ERPHSYRPT ---
- History of Present Illness Time Seen by Provider: 08/24/17 09:30 Source: patient Exam Limitations: clinical condition Patient Subjective Stated Complaint: Dizziness, "I feel like I have an infection." Cough and chest congestion. Triage Nursing Assessment: Pt presents to the ED with complaints of dizziness, near syncopal episode, cough and chest congestion. Pt states he was doing laundry at home when he began to feel symptoms. Pt states intermittent symptoms , worse with exertion. Pt is diaphoretic on arrival, states pain in left shoulder blade. Pt denies other complaints at this time. Physician History: PATIENT WITH HISTORY OF HYPERTENSION RECENTLY HOSPITALIZED FOR HYPONATREMIA 5 DAYS AGO, COMPLAINS OF NEAR SYNCOPE WHILE DOIN LAUNDRY, ASSOCIATED WITH FACIAL PAIN, BURNING SENSATION OVER FRONTAL AND MAXILLARY SINUSES OVER HIS NOSE AND BETWEEN HIS EYES. HAS ASSOCIATED CLEAR NASAL DISCHARGE, AND A NONPRODUCTIVE COUGH. PATIENT COMPLAINS OF DIAPHORESIS, DENIES CHEST PAIN, PALPITATIONS BUT COMPLAINS OF PAIN OVER LEFT SHOULDER BROOKS. Allergies/Adverse Reactions: No Known Drug Allergies Allergy (Verified 12/27/14 10:01) Home Medications: Hydrochlorothiazide 25 mg [hydroDIURIL 25 MG] 25 mg DAILY 06/03/14 [ History] Lisinopril 5 mg [Zestril 5 MG] 40 mg DAILY 06/03/14 [History] Albuterol Sulfate [Proventil Hfa] 2 puffs IH Q12H PRN PRN 12/27/14 [History] Esomeprazole Magnesium [Nexium 24Hr] 2 tab PO DAILY 12/27/14 [History] Atorvastatin Calcium 20 mg PO DAILY 07/26/17 [History] Hx Tetanus, Diphtheria Vaccination/Date Given: No Hx Influenza Vaccination/Date Given: No Hx Pneumococcal Vaccination/Date Given: No Immunizations Up to Date: No - Past Medical History Pertinent Past Medical History: Yes Neurological History: No Pertinent History ENT History: Cataracts Cardiac History: Hypertension Respiratory History: No Pertinent History Endocrine Medical History: No Pertinent History Musculoskeletal History: No Pertinent History GI Medical History: GERD History: No Pertinent History Psycho-Social History: No Pertinent History Male Reproductive Disorders: No Pertinent History Other Medical History: SEASONAL ALLERGIES, R eye possible cataract forming - Past Surgical History Past Surgical History: Yes Neuro Surgical History: No Pertinent History Cardiac: No Pertinent History Respiratory: No Pertinent History Gastrointestinal: Appendectomy Genitourinary: No Pertinent History Musculoskeletal: Joint Replacement, Other Male Surgical History: No Pertinent History Other Surgical History: Left broken arm surgical repair, RIGHT HIP REPLACED 2013 - Social History Smoking Status: Former smoker How long have you smoked: 13 years + Exposure to second hand smoke: No Drug Use: none Patient Lives Alone: No Physical Exam - Nursing Vital Signs Nursing Vital Signs: Initial Vital Signs Temperature 98.3 F 08/24/17 09:19 Pulse Rate 71 08/24/17 09:19 Respiratory Rate 17 08/24/17 09:19 Blood Pressure 154/105 08/24/17 09:19 O2 Sat by Pulse Oximetry 93 L 08/24/17 09:19 Pain Scale Pain Intensity 2 - Physical Exam SpO2: 93 Oxygen Delivery: Room Air - Course EKG Interpreted by Me: RATE, Sinus Rhythm, NORMAL AXIS - CT Exams Head CT Interpretation: Discussed w/radiologist, No/Intracranial Hemorrhag Maxillofacial Bones CT Interpretation: Discussed w/radiologist (THERE IS MILD/MODERATE MUCOSAL THICKENING INVOLVING THE INFERIOR MAXILLARY SINUSES, RIGHT GREATER THAN LEFT . MODERATE MUCOSAL THICKENING OF BOTH ETHMOID SINUSES AND TINY LEFT SPHENOID SINUS FLUID LEVELING) Ordered Tests: Active Orders 24 hr Category Date Time Status Learning Support Services Director STAT Care 08/24/17 09:42 Active EKG-ER Only STAT Care 08/24/17 09:40 Active IV Insertion STAT Care 08/24/17 09:40 Active Orthostatic Vital Signs STAT Care 08/24/17 09:40 Active CHEST 1 VIEW (PORTABLE) Stat Exams 08/24/17 09:41 Ordered FACIAL BONES WO CONTRAST [CT] Stat Exams 08/24/17 09:43 Completed HEAD WITHOUT CONTRAST [CT] Stat Exams 08/24/17 09:41 Completed CBC W DIFF Stat Lab 08/24/17 09:20 Completed CMP Stat Lab 08/24/17 09:20 Completed D-DIMER QUANTITATION Stat Lab 08/24/17 09:49 Completed ETHYL ALCOHOL Stat Lab 08/24/17 09:20 Completed TROPONIN Q3H Lab 08/24/17 09:20 Completed TROPONIN Q3H Lab 08/24/17 12:45 Ordered TROPONIN Q3H Lab 08/24/17 15:45 Ordered TROPONIN Q3H Lab 08/24/17 18:45 Ordered TROPONIN Q3H Lab 08/24/17 21:45 Ordered Medication Summary Generic Name Dose Route Start Last Admin Trade Name Freq PRN Reason Stop Dose Admin Sodium Chloride 1,000 mls @ 200 mls/hr 08/24/17 09:45 08/24/17 09:45 Sodium Chloride 0.9% 1000 Ml IV 09/23/17 09:44 200 mls/hr .Q5H CRISTELA Administration Ceftriaxone Sodium/Dextrose 1 g in 50 mls @ 100 mls/hr 08/24/17 11:14 11:20 Rocephin 1 Gm-D5w 50 Ml Bag IV 08/24/17 11:43 100 ml/hr STAT STA 100 mls/hr Administration Discontinued Medications Generic Name Dose Route Start Last Admin Trade Name Ysabel PRN Reason Stop Dose Admin Aspirin 324 mg 08/24/17 09:48 08/24/17 09:55 Baby Aspirin 81 Mg Chew PO 08/24/17 09:49 324 mg STAT ONE Administration Aspirin Confirm 08/24/17 09:54 Baby Aspirin 81 Mg Chew Administered 08/24/17 09:55 Dose 324 mg .ROUTE .STK-MED ONE Ceftriaxone Sodium/Dextrose Confirm 08/24/17 11:19 Rocephin 1 Gm-D5w 50 Ml Bag Administered 08/24/17 11:20 Dose 1 g in 50 mls @ ud IV .STK-MED ONE Lab/Rad Data: Laboratory Result Diagrams 08/24/17 09:20 08/24/17 09:20 Laboratory Results 08/24/17 08/24/17 08/24/17 Range/Units 09:49 09:20 09:20 WBC (4.0-10.5) K/mm3 RBC (4.1-5.6) M/mm3 Hgb (12.5-18.0) gm/dl Hct (42-50) % MCV (78-100) fl MCH (26-32) pg MCHC (32-36) g/dl RDW (11.5-14.0) % Plt Count (150-450) K/mm3 MPV (6-9.5) fl Gran % (36.0-66.0) % Eos # (Auto) (0-0.5) Absolute Lymphs (auto) (1.0-4.6) Absolute Monos (auto) (0.0-1.3) Lymphocytes % (24.0-44.0) % Monocytes % (0.0-12.0) % Eosinophils % (0.00-5.0) % Basophils % (0.0-0.4) % Absolute Granulocytes (1.4-6.9) Basophils # (0-0.4) D-Dimer 269.90 (215-500) ng/mL Sodium (137-145) mmol/L Potassium (3.5-5.1) mmol/L Chloride (98-107) mmol/L Carbon Dioxide (22-30) mmol/L Anion Gap (5-15) MEQ/L BUN (9-20) mg/dL Creatinine (0.66-1.25) mg/dL Estimated GFR ML/MIN Glucose (74-106) mg/dL Calcium (8.4-10.2) mg/dL Total Bilirubin (0.2-1.3) mg/dL AST (17-59) U/L ALT (0-50) U/L Alkaline Phosphatase (38-126) U/L Troponin I < 0.012 (0.000-0.034) ng/mL Serum Total Protein (6.3-8.2) g/dL Albumin (3.5-5.0) g/dL Ethyl Alcohol < 10 (0-10) mg/dL 08/24/17 08/24/17 Range/Units 09:20 09:20 WBC 5.9 (4.0-10.5) K/mm3 RBC 4.99 (4.1-5.6) M/mm3 Hgb 15.4 (12.5-18.0) gm/dl Hct 44.7 (42-50) % MCV 89.6 (78-100) fl MCH 30.9 (26-32) pg MCHC 34.5 (32-36) g/dl RDW 12.9 (11.5-14.0) % Plt Count 223 (150-450) K/mm3 MPV 9.9 H (6-9.5) fl Gran % 58.1 (36.0-66.0) % Eos # (Auto) 0.09 (0-0.5) Absolute Lymphs (auto) 1.68 (1.0-4.6) Absolute Monos (auto) 0.65 (0.0-1.3) Lymphocytes % 28.6 (24.0-44.0) % Monocytes % 11.1 (0.0-12.0) % Eosinophils % 1.5 (0.00-5.0) % Basophils % 0.7 (0.0-0.4) % Absolute Granulocytes 3.42 (1.4-6.9) Basophils # 0.04 (0-0.4) D-Dimer (215-500) ng/mL Sodium 135 L (137-145) mmol/L Potassium 3.7 (3.5-5.1) mmol/L Chloride 93 L (98-107) mmol/L Carbon Dioxide 28 (22-30) mmol/L Anion Gap 17.0 H (5-15) MEQ/L BUN 7 L (9-20) mg/dL Creatinine 0.80 (0.66-1.25) mg/dL Estimated GFR > 60.0 ML/MIN Glucose 99 (74-106) mg/dL Calcium 10.3 H (8.4-10.2) mg/dL Total Bilirubin 0.50 (0.2-1.3) mg/dL AST 24 (17-59) U/L ALT 36 (0-50) U/L Alkaline Phosphatase 85 (38-126) U/L Troponin I (0.000-0.034) ng/mL Serum Total Protein 7.9 (6.3-8.2) g/dL Albumin 4.8 (3.5-5.0) g/dL Ethyl Alcohol (0-10) mg/dL - Progress Progress Note: 08/24/17 11:18 IV NORMAL SALINE 200ML/HR, ROCEPHIN 1GM IVPB Counseled pt/family regarding: lab results, diagnosis, need for follow-up, rad results - Departure Time of Disposition: 11:45 Departure Disposition: Home Clinical Impression: NEAR SYNCOPE, ACUTE MAXILLARY/ETHMOID SINUSITIS Condition: Stable Critical Care Time: No Referrals: MEHDI CRUZ MD [Primary Care Provider] - Additional Instructions: ANTIBIOTIC OMNICEF 300MG TWICE DAILY FOR 14 DAYS. CONSULT YOUR PRIMARY CARE PROVIDER FOR FOLLOWUP AND RE-EVALUATION. TYLENOL OR MOTRIN NEEDED FOR PAIN OR FEVER. Prescriptions: Cefdinir [Omnicef 300 mg] 300 mg PO BID #28 capsule
[2017-08-24] MEDS ORDERED: Sodium Chloride 0.9% 1000 ML 1,000 ML ONE (09:45)
[2017-08-24] MEDS ORDERED: Sodium Chloride 0.9% 1000 ML 1,000 ML IV SCH (09:45)
[2017-08-24] MEDS ORDERED: BABY ASPIRIN 81 MG CHEW PO ONE (09:48)
[2017-08-24 09:52] LABS: BASOPHIL % 0.7 % (0.0-0.4); Basophil (Absolute #) 0.04 (0-0.4); Eosinophil % 1.5 % (0.00-5.0); Eosinophil (Absolute #) 0.09 (0-0.5); Granulocyte Absolute (ANC) 3.42 (1.4-6.9); Granulocytes % 58.1 % (36.0-66.0); Hematocrit 44.7 % (42-50); Hemoglobin 15.4 gm/dl (12.5-18.0); Lymphocyte (Absolute #) 1.68 (1.0-4.6); Lymphocytes % 28.6 % (24.0-44.0); Mean Cell Volume 89.6 fl (78-100); Mean Corpuscular Hemoglobin 30.9 pg (26-32); Mean Corpuscular Hgb Concent. 34.5 g/dl (32-36); Mean Platelet Volume 9.9 fl (6-9.5); Monocyte (Absolute #) 0.65 (0.0-1.3); Monocytes % 11.1 % (0.0-12.0); Platelet Count 223 K/mm3 (150-450); Red Blood Count 4.99 M/mm3 (4.1-5.6); Red Cell Distribution Width 12.9 % (11.5-14.0); White Blood Count 5.9 K/mm3 (4.0-10.5)
[2017-08-24] MEDS ORDERED: BABY ASPIRIN 81 MG CHEW ONE (09:54)
[2017-08-24 10:11] LABS: ALBUMIN 4.8 g/dL (3.5-5.0); ALKALINE PHOSPHATASE 85 U/L (38-126); BLOOD UREA NITROGEN 7 mg/dL (9-20); CHLORIDE 93 mmol/L (98-107); Calcium 10.3 mg/dL (8.4-10.2); Carbon Dioxide 28 mmol/L (22-30); Glucose 99 mg/dL (74-106); Potassium 3.7 mmol/L (3.5-5.1); SGOT/AST 24 U/L (17-59); SGPT/ALT 36 U/L (0-50); SODIUM 135 mmol/L (137-145); Total Protein 7.9 g/dL (6.3-8.2)
--- NOTE | 2017-08-24 11:08 | XRAY ---
Indication: Headache and facial pain. Multiple contiguous axial images obtained through the head without contrast. Comparison: None Normal appearing brain parenchyma, ventricles, and bony calvarium. There is moderate mucosal thickening of both ethmoid sinuses with tiny left sphenoid sinus fluid leveling. Mastoid air cells are clear. Impression: No acute intracranial abnormalities. Incidental paranasal sinus disease. CT DI 66.37
--- NOTE | 2017-08-24 11:10 | XRAY ---
Indication: Headache and facial pain. Multiple contiguous axial images obtained through the facial bones. Sagittal and coronal reformatted images obtained. Comparison: None Left dental amalgam produces mild beam artifact. No acute fracture, suspicious bony lesions, or radiopaque foreign body. Orbits including roof, carnes, and floors intact. There is mild/moderate mucosal thickening involving the inferior maxillary sinuses, right greater than left. Also moderate mucosal thickening of both ethmoid sinuses and tiny left sphenoid sinus fluid leveling. Minimal nasal septal deviation. Remaining visualized noncontrasted soft tissues unremarkable. CT head reported separately. Impression: Paranasal sinus disease. Remaining CT facial bones negative. CT DI 59.47
[2017-08-24] MEDS ORDERED: ROCEPHIN 1 Gm-D5w 50 ml Bag** 1 G/50 ML IVPB IV STA (11:14)
[2017-08-24] MEDS ORDERED: ROCEPHIN 1 Gm-D5w 50 ml Bag** 1 G/50 ML IVPB IV ONE (11:19)
[2017-08-24 11:24] VITALS: BP 131/69; PULSE 68
[2017-08-24 11:30] VITALS: O2SAT 93
--- NOTE | 2017-08-25 11:50 | XRAY ---
Indication: Headache. Comparison: July 26, 2017. Portable apical lordotic chest again demonstrates normal heart and lungs with a few incidental calcified granulomas. No new/acute findings.
== END 2017-08-24 12:08 | disposition home or self-care (01) ==
LOC: ED 09:14
DX: R55 Syncope and collapse (principal); J01.00 Acute maxillary sinusitis, unspecified; J01.20 Acute ethmoidal sinusitis, unspecified; M25.512 Pain in left shoulder; Z79.899 Other long term (current) drug therapy
CPT/HCPCS: 36000; 36415; 70450; 70486; 71045; 80053; 80307; 84484; 85025; 85379; 93005; 93041; 96360; 96361; 96365; 99284; 99285; J0696; A9270-GY; G0480

== ENCOUNTER 2017-08-27 07:57 | Emergency (ER) | payer BC ==
[2017-08-27] MEDS ORDERED: Sodium Chloride 0.9% 1000 ML 1,000 ML IV STA (08:27)
[2017-08-27] MEDS ORDERED: Sodium Chloride 0.9% 1000 ML 1,000 ML ONE (08:30)
--- NOTE | 2017-08-27 08:30 | ERPHSYRPT ---
- History of Present Illness Time Seen by Provider: 08/27/17 08:20 Historian: patient Exam Limitations: no limitations Patient Subjective Stated Complaint: pt reports ongoing abd pain n/v/d issues- scheduled for colonoscopy -reports when he eats he has to take mag citrate then has diarrhea-denies vomiting Triage Nursing Assessment: pt pink warm and mcg-aocms-tyd soft and pt reacting before palp-resp easy and nonlabored at this time Physician History: This is a 57-year-old white male with history of cataracts, high blood pressure , GERD, seasonal allergies. He arrives with complaint of pain in his epigastric region which lasted from 8: 30 to 30 this morning now with some mild suprapubic abdominal discomfort him. he states no vomiting he states he has had loose stools when taking magnesium citrate past medical history includes cataracts, high blood pressure, GERD, seasonal allergies Past surgical history includes appendectomy, right hip replacement, ORIF left arm patient has been seen in this emergeny room for the same, he is scheduled for colonoscopy nnext September 01 Patient has had aCT scan for his abdomen on July 26, 2017 as well as August 19, 2017 which showed diverticulosis Timing/Duration: other (pain began at 8:30 last night and continued until 2:30 this morning now with lower abdominal pain) Quality: other (describes pain as severe will not characterize) Abdominal Pain Onset Location: epigastric, other (pain from 8:30 last night until 2:30 this morning epigastric region better after bowel movement now lower abdominal pain suprapubic region) Pain Radiation: epigastric, other (suprapubic region) Severity of Pain-Max: moderate Severity of Pain-Current: moderate Modifying Factors: Improves With: nothing Associated Symptoms: diarrhea (diarrhea with magnesium citrate), No back, No chest pain, No diaphoresis, No fever/chills, No fatigue, No headache, No heartburn, No loss of appetite, No nausea, No neck pain, No rash, No shortness of breath, No syncope, No vomiting, No weakness Previous symptoms: same symptoms as today (seen several times in this emergency room for same) Allergies/Adverse Reactions: No Known Drug Allergies Allergy (Verified 08/27/17 08:10) Home Medications: Hydrochlorothiazide 25 mg [hydroDIURIL 25 MG] 25 mg DAILY 06/03/14 [ History] Lisinopril 5 mg [Zestril 5 MG] 40 mg DAILY 06/03/14 [History] Albuterol Sulfate [Proventil Hfa] 2 puffs IH Q12H PRN PRN 12/27/14 [History] Esomeprazole Magnesium [Nexium 24Hr] 2 tab PO DAILY 12/27/14 [History] Atorvastatin Calcium 20 mg PO DAILY 07/26/17 [History] Hx Tetanus, Diphtheria Vaccination/Date Given: No Hx Influenza Vaccination/Date Given: No Hx Pneumococcal Vaccination/Date Given: No Immunizations Up to Date: Yes - Review of Systems Constitutional: No Fever, No Chills Eyes: No Symptoms Ears, Nose, & Throat: No Symptoms Respiratory: No Cough, No Dyspnea Cardiac: No Chest Pain, No Edema, No Syncope Abdominal/Gastrointestinal: Abdominal Pain (epigastric pain), Diarrhea ( diarrhea with magnesium citrate), No Hematemesis, No Hematochezia, No Melena, No Dysphagia, No Appetite Changes, No Other Genitourinary Symptoms: No Dysuria Musculoskeletal: No Back Pain, No Neck Pain Skin: No Rash Neurological: No Dizziness, No Focal Weakness, No Sensory Changes Psychological: No Symptoms Endocrine: No Symptoms All Other Systems: Reviewed and Negative - Past Medical History Pertinent Past Medical History: Yes Neurological History: No Pertinent History ENT History: Cataracts Cardiac History: Hypertension Respiratory History: No Pertinent History Endocrine Medical History: No Pertinent History Musculoskeletal History: No Pertinent History GI Medical History: GERD History: No Pertinent History Psycho-Social History: No Pertinent History Male Reproductive Disorders: No Pertinent History Other Medical History: SEASONAL ALLERGIES, R eye possible cataract forming - Past Surgical History Past Surgical History: Yes Neuro Surgical History: No Pertinent History Cardiac: No Pertinent History Respiratory: No Pertinent History Gastrointestinal: Appendectomy Genitourinary: No Pertinent History Musculoskeletal: Joint Replacement, Other Male Surgical History: No Pertinent History Other Surgical History: Left broken arm surgical repair, RIGHT HIP REPLACED 2013 - Social History Smoking Status: Former smoker How long have you smoked: 13 years + Exposure to second hand smoke: No Drug Use: none Patient Lives Alone: No - Nursing Vital Signs Nursing Vital Signs: Initial Vital Signs Temperature 98.0 F 08/27/17 08:04 Pulse Rate 82 08/27/17 08:04 Respiratory Rate 18 08/27/17 08:04 Blood Pressure 154/86 08/27/17 08:04 O2 Sat by Pulse Oximetry 100 08/27/17 08:04 Pain Scale Pain Intensity 2 - Physical Exam General Appearance: no apparent distress, alert Eye Exam: PERRL/EOMI, eyes nml inspection Ears, Nose, Throat Exam: normal ENT inspection, pharynx normal, moist mucous membranes Neck Exam: normal inspection, non-tender, supple, full range of motion Respiratory Exam: normal breath sounds, lungs clear, No respiratory distress Cardiovascular Exam: regular rate/rhythm, normal heart sounds Gastrointestinal/Abdomen Exam: soft, normal bowel sounds, tenderness (mild suprapubic tenderness with palpation) Rectal Exam: other (moderate amount of hemorrhoidal tissue, no bleeding, no masses) Back Exam: normal inspection, normal range of motion, No CVA tenderness, No vertebral tenderness Extremity Exam: normal inspection, normal range of motion, pelvis stable Neurologic Exam: alert, oriented x 3, cooperative, normal mood/affect, nml cerebellar function, sensation nml, No motor deficits Skin Exam: normal color, warm, dry SpO2 Interpretation: normal (100) SpO2: 100 Oxygen Delivery: Room Air - Course Nursing assessment & vital signs reviewed: Yes EKG Interpreted by Me: RATE (72 bpm), Sinus Rhythm, NORMAL AXIS, Other (EKG: Sinus rhythm, 72 bpm, normal axis, no acute ST or T WAVE CHANGES NOTED Essentially normal EKG) - Radiology Exams Abdomen X-ray Interpretation: Interpreted by me, Discussed w/ radiologist, Other (no acute findings) Ordered Tests: Active Orders 24 hr Category Date Time Status EKG-ER Only STAT Care 08/27/17 08:27 Active IV Insertion STAT Care 08/27/17 08:27 Active OBSTR/ACUTE ABDOMEN SERIES Stat Exams 08/27/17 09:32 Taken AMYLASE Stat Lab 08/27/17 08:30 Completed CBC W DIFF Stat Lab 08/27/17 08:30 Completed CMP Stat Lab 08/27/17 08:30 Completed LIPASE Stat Lab 08/27/17 08:30 Completed Occult Blood,Stool Other Stat Lab 08/27/17 10:45 Completed TROPONIN Q3H Lab 08/27/17 08:30 Completed TROPONIN Q3H Lab 08/27/17 11:30 Ordered TROPONIN Q3H Lab 08/27/17 14:30 Ordered TROPONIN Q3H Lab 08/27/17 17:30 Ordered TROPONIN Q3H Lab 08/27/17 20:30 Ordered UA W/RFX UR CULTURE Stat Lab 08/27/17 09:15 Completed Medication Summary Discontinued Medications Generic Name Dose Route Start Last Admin Trade Name Ysabel PRN Reason Stop Dose Admin Sodium Chloride 1,000 mls @ 999 mls/hr 08/27/17 08:27 08/27/17 08:31 Sodium Chloride 0.9% 1000 Ml IV 08/27/17 09:27 999 mls/hr .Q1H1M STA Administration Sodium Chloride Confirm 08/27/17 08:30 Sodium Chloride 0.9% 1000 Ml Administered 08/27/17 08:31 Dose 1,000 mls @ ud .ROUTE .STK-MED ONE Morphine Sulfate 4 mg 08/27/17 10:38 08/27/17 10:42 Morphine Sulfate 4 Mg Inj IV 08/27/17 10:39 4 mg STAT ONE Administration Morphine Sulfate Confirm 08/27/17 10:41 Morphine Sulfate 4 Mg Inj Administered 08/27/17 10:42 Dose 4 mg .ROUTE .STK-MED ONE Lab/Rad Data: Laboratory Result Diagrams 08/27/17 08:30 08/27/17 08:30 Laboratory Results 08/27/17 08/27/17 08/27/17 Range/Units 10:45 09:15 08:30 WBC (4.0-10.5) K/mm3 RBC (4.1-5.6) M/mm3 Hgb (12.5-18.0) gm/dl Hct (42-50) % MCV (78-100) fl MCH (26-32) pg MCHC (32-36) g/dl RDW (11.5-14.0) % Plt Count (150-450) K/mm3 MPV (6-9.5) fl Gran % (36.0-66.0) % Eos # (Auto) (0-0.5) Absolute Lymphs (auto) (1.0-4.6) Absolute Monos (auto) (0.0-1.3) Lymphocytes % (24.0-44.0) % Monocytes % (0.0-12.0) % Eosinophils % (0.00-5.0) % Basophils % (0.0-0.4) % Absolute Granulocytes (1.4-6.9) Basophils # (0-0.4) Sodium (137-145) mmol/L Potassium (3.5-5.1) mmol/L Chloride (98-107) mmol/L Carbon Dioxide (22-30) mmol/L Anion Gap (5-15) MEQ/L BUN (9-20) mg/dL Creatinine (0.66-1.25) mg/dL Estimated GFR ML/MIN Glucose (74-106) mg/dL Calcium (8.4-10.2) mg/dL Total Bilirubin (0.2-1.3) mg/dL AST (17-59) U/L ALT (0-50) U/L Alkaline Phosphatase (38-126) U/L Troponin I < 0.012 (0.000-0.034) ng/mL Serum Total Protein (6.3-8.2) g/dL Albumin (3.5-5.0) g/dL Amylase (30-110) U/L Lipase (23-300) U/L Ur Collection Type CCMS Urine Color YELLOW (YELLOW) Urine Appearance CLEAR (CLEAR) Urine pH 8.0 (5-6) Ur Specific [place] 1.005 (1.005-1.025) Urine Protein NEGATIVE (Negative) Urine Ketones NEGATIVE (NEGATIVE) Urine Blood NEGATIVE (0-5) Tray/ul Urine Nitrite NEGATIVE (NEGATIVE) Urine Bilirubin NEGATIVE (NEGATIVE) Urine Urobilinogen NORMAL (0-1) mg/dL Ur Leukocyte Esterase NEGATIVE (NEGATIVE) Urine Culture Reflexed NO (NO) Urine Glucose NEGATIVE (NEGATIVE) mg/dL Stool Occult Blood NEGATIVE (Negative) Specimen Received 0915 08/27/17 08/27/17 08/27/17 Range/Units 08:30 08:30 WBC 5.0 (4.0-10.5) K/mm3 RBC 4.63 (4.1-5.6) M/mm3 Hgb 14.3 (12.5-18.0) gm/dl Hct 41.8 L (42-50) % MCV 90.3 (78-100) fl MCH 30.9 (26-32) pg MCHC 34.2 (32-36) g/dl RDW 12.7 (11.5-14.0) % Plt Count 225 (150-450) K/mm3 MPV 9.8 H (6-9.5) fl Gran % 61.3 (36.0-66.0) % Eos # (Auto) 0.11 (0-0.5) Absolute Lymphs (auto) 1.33 (1.0-4.6) Absolute Monos (auto) 0.47 (0.0-1.3) Lymphocytes % 26.5 (24.0-44.0) % Monocytes % 9.4 (0.0-12.0) % Eosinophils % 2.2 (0.00-5.0) % Basophils % 0.6 (0.0-0.4) % Absolute Granulocytes 3.08 (1.4-6.9) Basophils # 0.03 (0-0.4) Sodium 134 L (137-145) mmol/L Potassium 3.6 (3.5-5.1) mmol/L Chloride 93 L (98-107) mmol/L Carbon Dioxide 30 (22-30) mmol/L Anion Gap 14.8 (5-15) MEQ/L BUN 5 L (9-20) mg/dL Creatinine 0.71 (0.66-1.25) mg/dL Estimated GFR > 60.0 ML/MIN Glucose 128 H (74-106) mg/dL Calcium 9.7 (8.4-10.2) mg/dL Total Bilirubin 0.40 (0.2-1.3) mg/dL AST 25 (17-59) U/L ALT 33 (0-50) U/L Alkaline Phosphatase 79 (38-126) U/L Troponin I (0.000-0.034) ng/mL Serum Total Protein 7.3 (6.3-8.2) g/dL Albumin 4.4 (3.5-5.0) g/dL Amylase 83 (30-110) U/L Lipase 136 (23-300) U/L Ur Collection Type Urine Color (YELLOW) Urine Appearance (CLEAR) Urine pH (5-6) Ur Specific [place] (1.005-1.025) Urine Protein (Negative) Urine Ketones (NEGATIVE) Urine Blood (0-5) Tray/ul Urine Nitrite (NEGATIVE) Urine Bilirubin (NEGATIVE) Urine Urobilinogen (0-1) mg/dL Ur Leukocyte Esterase (NEGATIVE) Urine Culture Reflexed (NO) Urine Glucose (NEGATIVE) mg/dL Stool Occult Blood (Negative) Specimen Received - Progress Progress: improved Progress Note: 08/27/17 10:31 57-year-old white male arrives with complaint of pain in his epigastric area last night from a 30 p.m. to 2:30 PM now with mild suprapubic tenderness. Patient was recently admitted for abdominal pain and hyponatremia. Patient does state that he's been taking magnesium citrate to help him have bowel movements after eating. He has no hematochezia no melena he is not vomiting.. On physical examination patient with mild suprapubic tenderness he is not tender with palpation on the epigastric region. Patient's labs showed normal white count 5.0 hemoglobin 14.3 hematocrit 41.8 patient's chemistry troponin less than 0.12 Chemistry sodium 134 potassium 3.6 chloride 93 BUN 5 creatinine 0.71 glucose 128 amylase and lipase are within normal limits urinalysis is within normal limits EKG normal sinus rhythm [address] or T wave changes noted normal axis Acute abdominal series chest: No acute disease process noted abdomen moderate amount of air in the bowel no obstruction. Patient given 1 L of normal saline states he still has some pain in the left upper quadrant at this time will give patient morphine 4 mg IM. Patient is already scheduled for colonoscopy on September 01 Will have patient return home clear fluids 24-48 hours. Tylenol as needed for pain. Follow-up with his family doctor if symptoms no better in 24-48 hours or becomes worse. To keep his appointment with Dr. Cruz for colonoscopy contact Dr. Cruz if problems return for acute distress or for severe symptoms.. - Departure Time of Disposition: 11:15 Departure Disposition: Home Clinical Impression: Abdominal pain Qualifiers: Abdominal location: epigastric Qualified Code(s): R10.13 - Epigastric pain Condition: Fair Critical Care Time: No Referrals: MEHDI CRUZ MD [Primary Care Provider] - Additional Instructions: Return home. Clear fluids only 24-48 hours if abdominal pain. Tylenol every 4-6 hours as needed for pain. Follow-up with Dr. Cruz if symptoms are worse, no better in 24-48 hours. or persist longer than 48 hours. Return for acute distress or for severe symptoms.
[2017-08-27 08:36] LABS: BASOPHIL % 0.6 % (0.0-0.4); Basophil (Absolute #) 0.03 (0-0.4); Eosinophil % 2.2 % (0.00-5.0); Eosinophil (Absolute #) 0.11 (0-0.5); Granulocyte Absolute (ANC) 3.08 (1.4-6.9); Granulocytes % 61.3 % (36.0-66.0); Hematocrit 41.8 % (42-50); Hemoglobin 14.3 gm/dl (12.5-18.0); Lymphocyte (Absolute #) 1.33 (1.0-4.6); Lymphocytes % 26.5 % (24.0-44.0); Mean Cell Volume 90.3 fl (78-100); Mean Corpuscular Hemoglobin 30.9 pg (26-32); Mean Corpuscular Hgb Concent. 34.2 g/dl (32-36); Mean Platelet Volume 9.8 fl (6-9.5); Monocyte (Absolute #) 0.47 (0.0-1.3); Monocytes % 9.4 % (0.0-12.0); Platelet Count 225 K/mm3 (150-450); Red Blood Count 4.63 M/mm3 (4.1-5.6); Red Cell Distribution Width 12.7 % (11.5-14.0)
[2017-08-27 09:57] LABS: Appearance CLEAR (CLEAR); Bilirubin NEGATIVE (NEGATIVE); Blood NEGATIVE Ery/ul (0-5); Glucose NEGATIVE (NEGATIVE); Ketones NEGATIVE (NEGATIVE); Leukocyte Esterase NEGATIVE (NEGATIVE); Nitrite NEGATIVE (NEGATIVE); Protein,Urine Dip NEGATIVE (Negative); Specific Gravity 1.005 (1.005-1.025); Urobilinogen NORMAL mg/dL (0-1)
[2017-08-27 10:10] LABS: ALBUMIN 4.4 g/dL (3.5-5.0); ALKALINE PHOSPHATASE 79 U/L (38-126); AMYLASE 83 U/L (30-110); ANION GAP 14.8 MEQ/L (5-15); BLOOD UREA NITROGEN 5 mg/dL (9-20); CHLORIDE 93 mmol/L (98-107); Calcium 9.7 mg/dL (8.4-10.2); Carbon Dioxide 30 mmol/L (22-30); Creatinine 1 0.71 mg/dL (0.66-1.25); Glucose 128 mg/dL (74-106); LIPASE 136 U/L (23-300); Potassium 3.6 mmol/L (3.5-5.1); SGOT/AST 25 U/L (17-59); SGPT/ALT 33 U/L (0-50); SODIUM 134 mmol/L (137-145); Total Protein 7.3 g/dL (6.3-8.2)
[2017-08-27] MEDS ORDERED: MORPHINE SULFATE 4 MG INJ IV ONE (10:38)
[2017-08-27] MEDS ORDERED: MORPHINE SULFATE 4 MG INJ ONE (10:41)
[2017-08-27 11:44] VITALS: BP 118/60; PULSE 72; O2SAT 97
--- NOTE | 2017-08-27 16:16 | XRAY ---
Indication: Abdomen pain. Comparison: Chest exam August 24, [address] abdomen/pelvis August 19, 2017. 2 views of the abdomen demonstrates nonspecific nonobstructed bowel gas pattern. No focal bowel dilatation or free air. Solid organs unremarkable. Osseous structures intact with mild multilevel degenerative spondylosis and bilateral total hip arthroplasty with intact prostheses. Single PA chest again demonstrates normal heart and lungs. Bony thorax intact again with mild degenerative changes. Impression: 1. Negative abdomen. 2. Stable nonacute one view chest. Comment: Preliminary interpretation was made by [facility]. No discrepancy.
== END 2017-08-27 11:44 | disposition home or self-care (01) ==
LOC: ED 07:57
DX: R10.13 Epigastric pain (principal); R10.12 Left upper quadrant pain; Z79.899 Other long term (current) drug therapy; R19.7 Diarrhea, unspecified
CPT/HCPCS: 36000; 36415; 74022; 80053; 81002; 82150; 82272; 83690; 84484; 85025; 93005; 96360; 96374; 99284; J2270

== ENCOUNTER 2017-09-28 13:50 | Emergency (ER) | payer BC ==
[2017-09-28] MEDS ORDERED: TORAdol 30 mg Injection IV ONE (14:13)
[2017-09-28] MEDS ORDERED: Sodium Chloride 0.9% 1000 ML 1,000 ML IV STA (14:13)
--- NOTE | 2017-09-28 14:19 | ERPHSYRPT ---
- History of Present Illness Time Seen by Provider: 09/28/17 13:59 Historian: patient Exam Limitations: no limitations Patient Subjective Stated Complaint: Left Flank Pain, worse with movement Triage Nursing Assessment: Pt presents to the ED with complaints of sudden onset of left flank pain when he moved earlier. Pt states sharp pain 10/10 at onset with gradual decrease in pain. Pt states pain is now 5/10. No distress noted, skin PWD. Physician History: Pt has been c/o abdominal pain for few days. He has been worked up for gallbladder disease. He was getting up to prepare some food, when he felt sudden pain in his left flank area, radiating to his abdomen. He denies nausea, vomiting, fever, chills, urinary complaints, diarrhea, no chest pain, cough or SOB, but became diaphoretic from the pain. He also denies pain radiating to his leg, leg weakness, numbness, or loss of bladder control. Timing/Duration: hour(s) (1) Activities at Onset: activity Quality: cramping, sharpness Abdominal Pain Onset Location: flank (left) Pain Radiation: LLQ Severity of Pain-Max: severe Severity of Pain-Current: severe Modifying Factors: Improves With: movement Associated Symptoms: diaphoresis Previous symptoms: no prior history Allergies/Adverse Reactions: codeine Adverse Reaction (Mild, Verified 08/30/17 14:39) Nausea Home Medications: Hydrochlorothiazide 25 mg [hydroDIURIL 25 MG] 25 mg DAILY 06/03/14 [ History] Lisinopril 5 mg [Zestril 5 MG] 40 mg DAILY 06/03/14 [History] Albuterol Sulfate [Proventil Hfa] 2 puffs IH Q12H PRN PRN 12/27/14 [History] Esomeprazole Magnesium [Nexium 24Hr] 2 tab PO DAILY 12/27/14 [History] Atorvastatin Calcium 20 mg PO DAILY 07/26/17 [History] Montelukast Sodium 10 mg [Singulair 10 MG] 10 mg PO DAILY 09/28/17 [History] Hx Tetanus, Diphtheria Vaccination/Date Given: No Hx Influenza Vaccination/Date Given: No Hx Pneumococcal Vaccination/Date Given: No - Review of Systems Constitutional: No Symptoms Abdominal/Gastrointestinal: Abdominal Pain Genitourinary Symptoms: Flank Pain All Other Systems: Reviewed and Negative - Past Medical History Pertinent Past Medical History: Yes Neurological History: No Pertinent History ENT History: Cataracts Cardiac History: Hypertension Respiratory History: No Pertinent History Endocrine Medical History: No Pertinent History Musculoskeletal History: No Pertinent History GI Medical History: GERD History: No Pertinent History Psycho-Social History: No Pertinent History Male Reproductive Disorders: No Pertinent History Other Medical History: SEASONAL ALLERGIES, R eye possible cataract forming - Past Surgical History Past Surgical History: Yes Neuro Surgical History: No Pertinent History Cardiac: No Pertinent History Respiratory: No Pertinent History Gastrointestinal: Appendectomy Genitourinary: No Pertinent History Musculoskeletal: Joint Replacement, Other Male Surgical History: No Pertinent History Other Surgical History: Left broken arm surgical repair "screw and plate in there" lower arm, nick. hip replaced,left rotator cuff repair - Social History Smoking Status: Former smoker How long have you smoked: 13 years + Exposure to second hand smoke: No Drug Use: none Patient Lives Alone: No - Nursing Vital Signs Nursing Vital Signs: Initial Vital Signs Temperature 97.7 F 09/28/17 14:00 Pulse Rate 82 09/28/17 14:00 Respiratory Rate 16 09/28/17 14:00 Blood Pressure 177/103 09/28/17 14:00 O2 Sat by Pulse Oximetry 100 09/28/17 14:00 Pain Scale Pain Intensity 4 - Physical Exam General Appearance: no apparent distress Eye Exam: eyes nml inspection Ears, Nose, Throat Exam: normal ENT inspection Neck Exam: normal inspection, non-tender, supple Respiratory Exam: normal breath sounds, lungs clear, airway intact Cardiovascular Exam: regular rate/rhythm, normal heart sounds, normal peripheral pulses, No murmur Gastrointestinal/Abdomen Exam: soft, normal bowel sounds, tenderness (LLQ), No distention, No mass, No guarding, No ecchymosis, No pulsatile mass, No rebound, No hernia, No organomegaly Back Exam: CVA tenderness (left) Extremity Exam: normal inspection Neurologic Exam: alert, oriented x 3, normal mood/affect Skin Exam: normal color, warm, dry, No rash Lymphatic Exam: No adenopathy SpO2 Interpretation: normal SpO2: 100 Oxygen Delivery: Room Air - Course Nursing assessment & vital signs reviewed: Yes - CT Exams Abdomen/Pelvis CT Interpretation: Negative, Tele-radiologist Report, Other (limited due to artifacts, fecal stasis, no obstruction, otherwise negative) Ordered Tests: Active Orders 24 hr Category Date Time Status IV Insertion STAT Care 09/28/17 14:13 Active ABDOMEN AND PELVIS W/0 CONTRAS [CT] Stat Exams 09/28/17 14:14 Completed CBC W DIFF Stat Lab 09/28/17 14:13 Completed CMP Stat Lab 09/28/17 Completed LIPASE Stat Lab 09/28/17 Completed UA W/RFX UR CULTURE Stat Lab 09/28/17 15:23 Completed Medication Summary Discontinued Medications Generic Name Dose Route Start Last Admin Trade Name Freleonel PRN Reason Stop Dose Admin Sodium Chloride 1,000 mls @ 999 mls/hr 09/28/17 14:13 09/28/17 14:29 Sodium Chloride 0.9% 1000 Ml IV 09/28/17 15:13 999 mls/hr .Q1H1M STA Administration Sodium Chloride Confirm 09/28/17 14:21 Sodium Chloride 0.9% 1000 Ml Administered 09/28/17 14:22 Dose 1,000 mls @ ud .ROUTE .STK-MED ONE Ketorolac Tromethamine 30 mg 09/28/17 14:13 09/28/17 14:29 Toradol 30 Mg Injection IV 09/28/17 14:14 30 mg STAT ONE Administration Ketorolac Tromethamine Confirm 09/28/17 14:21 Toradol 30 Mg Injection Administered 09/28/17 14:22 Dose 30 mg .ROUTE .STK-MED ONE Lab/Rad Data: Laboratory Result Diagrams 09/28/17 14:13 09/28/17 Unknown Laboratory Results 09/28/17 09/28/17 09/28/17 Range/Units Unknown 15:23 14:13 WBC 7.5 (4.0-10.5) K/mm3 RBC 4.86 (4.1-5.6) M/mm3 Hgb 15.3 (12.5-18.0) gm/dl Hct 43.8 (42-50) % MCV 90.1 (78-100) fl MCH 31.5 (26-32) pg MCHC 34.9 (32-36) g/dl RDW 13.5 (11.5-14.0) % Plt Count 233 (150-450) K/mm3 MPV 9.7 H (6-9.5) fl Gran % 70.4 H (36.0-66.0) % Eos # (Auto) 0.06 (0-0.5) Absolute Lymphs (auto) 1.56 (1.0-4.6) Absolute Monos (auto) 0.58 (0.0-1.3) Lymphocytes % 20.7 L (24.0-44.0) % Monocytes % 7.7 (0.0-12.0) % Eosinophils % 0.8 (0.00-5.0) % Basophils % 0.4 (0.0-0.4) % Absolute Granulocytes 5.29 (1.4-6.9) Basophils # 0.03 (0-0.4) Sodium 138 (137-145) mmol/L Potassium 3.8 (3.5-5.1) mmol/L Chloride 96 L (98-107) mmol/L Carbon Dioxide 27 (22-30) mmol/L Anion Gap 18.7 H (5-15) MEQ/L BUN 10 (9-20) mg/dL Creatinine 0.77 (0.66-1.25) mg/dL Estimated GFR > 60.0 ML/MIN Glucose 110 H (74-106) mg/dL Calcium 10.1 (8.4-10.2) mg/dL Total Bilirubin 0.50 (0.2-1.3) mg/dL AST 16 L (17-59) U/L ALT 19 (0-50) U/L Alkaline Phosphatase 110 (38-126) U/L Serum Total Protein 8.2 (6.3-8.2) g/dL Albumin 4.8 (3.5-5.0) g/dL Lipase 145 (23-300) U/L Ur Collection Type VOID Urine Color YELLOW (YELLOW) Urine Appearance CLEAR (CLEAR) Urine pH 8.0 (5-6) Ur Specific [place] 1.005 (1.005-1.025) Urine Protein NEGATIVE (Negative) Urine Ketones NEGATIVE (NEGATIVE) Urine Blood NEGATIVE (0-5) Tray/ul Urine Nitrite NEGATIVE (NEGATIVE) Urine Bilirubin NEGATIVE (NEGATIVE) Urine Urobilinogen NORMAL (0-1) mg/dL Ur Leukocyte Esterase NEGATIVE (NEGATIVE) Urine Culture Reflexed NO (NO) Urine Glucose NEGATIVE (NEGATIVE) mg/dL Specimen Received 1523 - Progress Progress: improved Progress Note: 09/28/17 15:56 I informed patient and his about CT abd lab results, and gave instructions to rst x2-3 days, apply moist heat to painful muscles and follow up with his doctor in 2-3 days. He is scheduled tomorrow here for gallbladder HIDA scan. Counseled pt/family regarding: lab results, diagnosis, need for follow-up, rad results - Departure Time of Disposition: 15:58 Departure Disposition: Home Clinical Impression: Back pain Qualifiers: Back pain location: low back pain Chronicity: acute Back pain laterality: left Sciatica presence: without sciatica Qualified Code(s): M54.5 - Low back pain Condition: Stable Critical Care Time: No Referrals: MEHDI CRUZ MD [Primary Care Provider] - Instructions: Flank Pain, Low Back Pain in Adults Additional Instructions: Rest x 2-3 days, apply moist heat to painful area, return if severe pain, vomiting, fever> 102 F, or sudden leg weakness, numbness, loss of bladder, or bowel control! Follow up with your physician in 2-3 days! Prescriptions: Cyclobenzaprine HCl [Flexeril] 10 mg PO TID 10 Days #30 tablet Cyclobenzaprine HCl 10 mg [Cyclobenzaprine 10 MG] 10 mg PO TID #30 tablet
[2017-09-28] MEDS ORDERED: TORAdol 30 mg Injection ONE (14:21)
[2017-09-28] MEDS ORDERED: Sodium Chloride 0.9% 1000 ML 1,000 ML ONE (14:21)
[2017-09-28 14:34] LABS: BASOPHIL % 0.4 % (0.0-0.4); Basophil (Absolute #) 0.03 (0-0.4); Eosinophil % 0.8 % (0.00-5.0); Eosinophil (Absolute #) 0.06 (0-0.5); Granulocyte Absolute (ANC) 5.29 (1.4-6.9); Granulocytes % 70.4 % (36.0-66.0); Hematocrit 43.8 % (42-50); Hemoglobin 15.3 gm/dl (12.5-18.0); Lymphocyte (Absolute #) 1.56 (1.0-4.6); Lymphocytes % 20.7 % (24.0-44.0); Mean Cell Volume 90.1 fl (78-100); Mean Corpuscular Hemoglobin 31.5 pg (26-32); Mean Corpuscular Hgb Concent. 34.9 g/dl (32-36); Mean Platelet Volume 9.7 fl (6-9.5); Monocyte (Absolute #) 0.58 (0.0-1.3); Monocytes % 7.7 % (0.0-12.0); Platelet Count 233 K/mm3 (150-450); Red Blood Count 4.86 M/mm3 (4.1-5.6); Red Cell Distribution Width 13.5 % (11.5-14.0); White Blood Count 7.5 K/mm3 (4.0-10.5)
[2017-09-28 15:05] LABS: ALBUMIN 4.8 g/dL (3.5-5.0); ALKALINE PHOSPHATASE 110 U/L (38-126); ANION GAP 18.7 MEQ/L (5-15); BLOOD UREA NITROGEN 10 mg/dL (9-20); CHLORIDE 96 mmol/L (98-107); Calcium 10.1 mg/dL (8.4-10.2); Carbon Dioxide 27 mmol/L (22-30); Creatinine 1 0.77 mg/dL (0.66-1.25); Glucose 110 mg/dL (74-106); LIPASE 145 U/L (23-300); Potassium 3.8 mmol/L (3.5-5.1); SGOT/AST 16 U/L (17-59); SGPT/ALT 19 U/L (0-50); SODIUM 138 mmol/L (137-145); Total Protein 8.2 g/dL (6.3-8.2)
--- NOTE | 2017-09-28 15:05 | XRAY ---
Indication: Left lower flank pain. Multiple contiguous axial images obtained through the abdomen and pelvis without contrast using renal stone protocol. Comparison: August 19, 2017. Lung bases are clear. Heart is not enlarged. Again bilateral hip prostheses produces extreme beam artifact limiting images through the pelvis. No renal calculus or evidence for obstructive uropathy in either system. Stable left renal cysts. Noncontrasted stomach and bowel loops appear nonobstructed. Stable small gastric diverticulum, appendectomy, and scattered colonic diverticulosis. There is now mild diffuse scattered colonic fecal debris. No free fluid/air. Remaining liver, gallbladder, pancreas, spleen, adrenal glands, kidneys, ureters, and bladder appear unremarkable for noncontrast exam. There remains mild aortoiliac calcifications without AAA. Osseous structures intact again with mild multilevel degenerative spondylosis. Impression: 1. Again images through the pelvis limited due to artifact from bilateral hip prosthesis. 2. Again negative renal calculus or evidence for obstructive uropathy. Stable left renal cysts. 3. New fecal stasis without obstruction. Stable colonic diverticulosis and small gastric diverticulum. 4. No acute intra-abdominal/pelvic abnormalities on this noncontrast exam. CT DI 23.69
[2017-09-28 15:48] LABS: Appearance CLEAR (CLEAR); Bilirubin NEGATIVE (NEGATIVE); Blood NEGATIVE Ery/ul (0-5); Glucose NEGATIVE (NEGATIVE); Ketones NEGATIVE (NEGATIVE); Leukocyte Esterase NEGATIVE (NEGATIVE); Nitrite NEGATIVE (NEGATIVE); Protein,Urine Dip NEGATIVE (Negative); Specific Gravity 1.005 (1.005-1.025); Urobilinogen NORMAL mg/dL (0-1)
[2017-09-28] MEDS ORDERED: Norflex 60 MG/2 ML IM ONE (16:03)
[2017-09-28] MEDS ORDERED: Norflex 60 MG/2 ML ONE (16:10)
[2017-09-28 16:21] VITALS: BP 152/82; PULSE 62; O2SAT 98
== END 2017-09-28 16:29 | disposition home or self-care (01) ==
LOC: ED 13:50
DX: M54.9 Dorsalgia, unspecified (principal); R10.32 Left lower quadrant pain; Z79.899 Other long term (current) drug therapy
CPT/HCPCS: 36000; 36415; 74176; 80053; 81002; 83690; 85025; 96360; 96372; 96374; 99284; J1885; J2360

== ENCOUNTER 2017-10-01 19:17 | Observation (INO) | payer BC ==
[2017-10-01] MEDS ORDERED: Sodium Chloride 0.9% 1000 ML 1,000 ML IV STA ×2 (19:46→19:47)
--- NOTE | 2017-10-01 19:51 | ERPHSYRPT ---
- History of Present Illness Time Seen by Provider: 10/01/17 19:42 Source: patient Exam Limitations: no limitations Patient Subjective Stated Complaint: pt states he has been vomiting today and is not able to keep anything down. states he has been having stomach problems since july and has lost 40lbs Triage Nursing Assessment: pt alert and oriented, answers questions approp. pt ambulatory with steady gait ntoed. respirations nonlabored with lungs cta. abd soft, bowel sounds present in all 4 quads. pt states he has been passing flatus Physician History: 57-year-old white male who states he has had the abdominal pain 40 pound weight loss since July arrives with complaint of unable to eat generalized aching states she has not been able to eat all day. States he vomits every time he eats Patient with recent workup which included CT of the abdomen on September 28, 2017 which showed fecal stasis no obstruction colonic diverticulosis. Past medical history includes cataracts, high blood pressure, GERD, seasonal allergies. Chronic back pain Past surgical history includes appendectomy joint repair left arm repair hip replaced rotator cuff. Timing/Duration: today Severity: moderate Modifying Factors: Improves With: nothing Associated Symptoms: nausea, vomiting, malaise, No abdominal pain, No shortness of breath, No heartburn, No diaphoresis, No cough, No chills, No chest pain, No fever, No headaches, No loss of appetite, No rash, No syncope, No seizure Allergies/Adverse Reactions: codeine Adverse Reaction (Mild, Verified 10/01/17 19:34) Nausea Home Medications: Hydrochlorothiazide 25 mg [hydroDIURIL 25 MG] 25 mg DAILY 06/03/14 [ History] Lisinopril 5 mg [Zestril 5 MG] 40 mg DAILY 06/03/14 [History] Albuterol Sulfate [Proventil Hfa] 2 puffs IH Q12H PRN PRN 12/27/14 [History] Esomeprazole Magnesium [Nexium 24Hr] 2 tab PO DAILY 12/27/14 [History] Montelukast Sodium 10 mg [Singulair 10 MG] 10 mg PO DAILY 09/28/17 [History] Hydrocodone/Acetaminophen [[place] 5-325 Tablet] 1 each PO Q6H PRN PRN 06/16/18 [ History] Hx Tetanus, Diphtheria Vaccination/Date Given: No Hx Influenza Vaccination/Date Given: No Hx Pneumococcal Vaccination/Date Given: No Immunizations Up to Date: No - Review of Systems Constitutional: No Fever, No Chills Eyes: No Symptoms Ears, Nose, & Throat: No Symptoms Respiratory: No Cough, No Dyspnea Cardiac: No Chest Pain, No Edema, No Syncope Abdominal/Gastrointestinal: Nausea, Vomiting, No Abdominal Pain, No Constipation , No Hematemesis, No Hematochezia, No Melena, No Dysphagia Genitourinary Symptoms: No Dysuria Musculoskeletal: No Back Pain, No Neck Pain Skin: No Rash Neurological: No Dizziness, No Focal Weakness, No Sensory Changes Psychological: No Symptoms Endocrine: No Symptoms All Other Systems: Reviewed and Negative - Past Medical History Pertinent Past Medical History: Yes Neurological History: No Pertinent History ENT History: Cataracts Cardiac History: Hypertension Respiratory History: No Pertinent History Endocrine Medical History: No Pertinent History Musculoskeletal History: No Pertinent History GI Medical History: GERD History: No Pertinent History Psycho-Social History: No Pertinent History Male Reproductive Disorders: No Pertinent History Other Medical History: SEASONAL ALLERGIES, R eye possible cataract forming. chronic constipation, freqeunt nausea and vomiting - Past Surgical History Past Surgical History: Yes Neuro Surgical History: No Pertinent History Cardiac: No Pertinent History Respiratory: No Pertinent History Gastrointestinal: Appendectomy Genitourinary: No Pertinent History Musculoskeletal: Joint Replacement, Other Male Surgical History: No Pertinent History Other Surgical History: Left broken arm surgical repair "screw and plate in there" lower arm, nick. hip replaced,left rotator cuff repair - Social History Smoking Status: Former smoker How long have you smoked: 13 years + Exposure to second hand smoke: No Drug Use: none Patient Lives Alone: No - Nursing Vital Signs Nursing Vital Signs: Initial Vital Signs Temperature 97.6 F 10/01/17 19:22 Pulse Rate 79 10/01/17 19:22 Respiratory Rate 18 10/01/17 19:22 Blood Pressure 164/83 10/01/17 19:22 O2 Sat by Pulse Oximetry 100 10/01/17 19:22 Pain Scale Pain Intensity 5 - Physical Exam General Appearance: moderate distress Eye Exam: PERRL/EOMI, eyes nml inspection Ears, Nose, Throat Exam: normal ENT inspection, TMs normal, pharynx normal, moist mucous membranes Neck Exam: normal inspection, non-tender, supple, full range of motion Respiratory Exam: normal breath sounds, lungs clear, No respiratory distress Cardiovascular Exam: regular rate/rhythm, normal heart sounds, normal peripheral pulses Gastrointestinal/Abdomen Exam: soft, normal bowel sounds, No tenderness, No mass Back Exam: normal inspection, normal range of motion, No CVA tenderness, No vertebral tenderness Extremity Exam: normal inspection, normal range of motion, pelvis stable Neurologic Exam: alert, oriented x 3, cooperative, environmental remediation consultant II-XII nml as tested, normal mood/affect, nml cerebellar function, nml station & gait, sensation nml, No motor deficits Skin Exam: normal color, warm, dry, No rash SpO2 Interpretation: normal (100%) SpO2: 100 Oxygen Delivery: Room Air - Course Nursing assessment & vital signs reviewed: Yes EKG Interpreted by Me: RATE (70 bpm), Sinus Rhythm, NORMAL AXIS, Other (EKG: Sinus rhythm, 70 beats per minute, normal axis, no acute st or t wave changes, essentially normal EKG ) - Radiology Exams Abdomen X-ray Interpretation: Interpreted by me (three-view abdomen: Large amount of air within the bowel, chest x-ray no acute disease process, no free air) - CT Exams Abdomen/Pelvis CT Interpretation: Tele-radiologist Report (CT of the abdomen and pelvis: impression 1. Negative for acute inflammatory process in the abdomen or pelvis. 2. Small diverticulum arising from the greater curvature of the stomach without surrounding inflammation. Measuring 2.4 cm appears chronic. 3. Diverticulosis without diverticulitis) Ordered Tests: Active Orders 24 hr Category Date Time Status EKG-ER Only STAT Care 10/01/17 19:46 Active IV Insertion STAT Care 10/01/17 19:46 Active ABDOMEN AND PELVIS W CONTRAST [CT] Stat Exams 10/01/17 23:05 Taken OBSTR/ACUTE ABDOMEN SERIES Stat Exams 10/01/17 22:02 Taken AMYLASE Stat Lab 10/01/17 20:11 Completed CBC W DIFF Stat Lab 10/01/17 20:11 Completed CMP Stat Lab 10/01/17 20:11 Completed LIPASE Stat Lab 10/01/17 20:11 Completed UA W/RFX UR CULTURE Stat Lab 10/01/17 20:45 Completed Medication Summary Discontinued Medications Generic Name Dose Route Start Last Admin Trade Name Freq PRN Reason Stop Dose Admin Sodium Chloride 1,000 mls @ 999 mls/hr 10/01/17 19:46 10/01/17 20:09 Sodium Chloride 0.9% 1000 Ml IV 10/01/17 20:46 999 mls/hr .Q1H1M STA Administration Sodium Chloride 1,000 mls @ 999 mls/hr 10/01/17 19:47 10/01/17 20:45 Sodium Chloride 0.9% 1000 Ml IV 10/01/17 20:47 999 mls/hr .Q1H1M STA Administration Sodium Chloride Confirm 10/01/17 20:03 Sodium Chloride 0.9% 1000 Ml Administered 10/01/17 20:04 Dose 1,000 mls @ ud .ROUTE .STK-MED ONE Sodium Chloride Confirm 10/01/17 20:43 Sodium Chloride 0.9% 1000 Ml Administered 10/01/17 20:44 Dose 1,000 mls @ ud .ROUTE .STK-MED ONE Morphine Sulfate 4 mg 10/01/17 21:32 10/01/17 21:39 Morphine Sulfate 4 Mg Inj IV 10/01/17 21:33 4 mg STAT ONE Administration Morphine Sulfate Confirm 10/01/17 21:35 Morphine Sulfate 4 Mg Inj Administered 10/01/17 21:36 Dose 4 mg .ROUTE .STK-MED ONE Promethazine HCl 12.5 mg 10/01/17 21:32 10/01/17 21:38 Phenergan 25 Mg Inj IV 10/01/17 21:33 12.5 mg STAT ONE Administration Promethazine HCl Confirm 10/01/17 21:33 Phenergan 25 Mg Inj Administered 10/01/17 21:34 Dose 25 mg .ROUTE .STK-MED ONE Lab/Rad Data: Laboratory Result Diagrams 10/01/17 20:11 10/01/17 20:11 Laboratory Results 10/01/17 10/01/17 10/01/17 Range/Units 20:45 20:11 20:11 WBC 8.3 (4.0-10.5) K/mm3 RBC 4.64 (4.1-5.6) M/mm3 Hgb 14.6 (12.5-18.0) gm/dl Hct 40.8 L (42-50) % MCV 87.9 (78-100) fl MCH 31.5 (26-32) pg MCHC 35.8 (32-36) g/dl RDW 12.9 (11.5-14.0) % Plt Count 234 (150-450) K/mm3 MPV 9.5 (6-9.5) fl Gran % 61.3 (36.0-66.0) % Eos # (Auto) 0.25 (0-0.5) Absolute Lymphs (auto) 2.20 (1.0-4.6) Absolute Monos (auto) 0.76 (0.0-1.3) Lymphocytes % 26.4 (24.0-44.0) % Monocytes % 9.1 (0.0-12.0) % Eosinophils % 3.0 (0.00-5.0) % Basophils % 0.2 (0.0-0.4) % Absolute Granulocytes 5.10 (1.4-6.9) Basophils # 0.02 (0-0.4) Sodium 129 L (137-145) mmol/L Potassium 3.4 L (3.5-5.1) mmol/L Chloride 90 L (98-107) mmol/L Carbon Dioxide 27 (22-30) mmol/L Anion Gap 15.1 H (5-15) MEQ/L BUN 7 L (9-20) mg/dL Creatinine 0.69 (0.66-1.25) mg/dL Estimated GFR > 60.0 ML/MIN Glucose 106 (74-106) mg/dL Calcium 9.7 (8.4-10.2) mg/dL Total Bilirubin 0.80 (0.2-1.3) mg/dL AST 13 L (17-59) U/L ALT 16 (0-50) U/L Alkaline Phosphatase 100 (38-126) U/L Serum Total Protein 7.1 (6.3-8.2) g/dL Albumin 4.4 (3.5-5.0) g/dL Amylase 57 (30-110) U/L Lipase 95 (23-300) U/L Ur Collection Type VOID Urine Color LT.YELLOW (YELLOW) Urine Appearance CLEAR (CLEAR) Urine pH 7.0 (5-6) Ur Specific [place] 1.005 (1.005-1.025) Urine Protein NEGATIVE (Negative) Urine Ketones NEGATIVE (NEGATIVE) Urine Blood NEGATIVE (0-5) Tray/ul Urine Nitrite NEGATIVE (NEGATIVE) Urine Bilirubin NEGATIVE (NEGATIVE) Urine Urobilinogen NORMAL (0-1) mg/dL Ur Leukocyte Esterase NEGATIVE (NEGATIVE) Urine Culture Reflexed NO (NO) Urine Glucose NEGATIVE (NEGATIVE) mg/dL Specimen Received 10/01/172044 - Progress Progress: improved Progress Note: 10/01/17 22:03 57-year-old white male with history of high blood pressure, GERD, seasonal allergies arrives with complaints of 40, weight loss since July Patient has been in the emergency room several times secondary to abdominal pain nausea. He had a CT of the abdomen and pelvis on September 28, 2017 which was limited secondary to hip prosthesis which are bilaterally but was positive for fecal stasis otherwise no acute abdominal or pelvic abnormalities. . He apparently also had a hiatus scan which was normal. He is arrives with complaint of vomiting all day states he is unable to keep anything down He appears to be somewhat diaphoretic on arrival he has no chest pain he is currently complaining of pain in the suprapubic region prior to this she was complaining of pain to his arms and legs. Patient's vitals are stable with a temperature of 97 6 pulse 79 respiration 18 blood pressure 164/83 sat is 100 per sent Patient with white count 8.3 hemoglobin 14.6 hematocrit 40.8 platelets 234 Chemistry sodium 129 potassium 3.4 chloride 90 bicarbonate 27 BUN 7 creatinine 0.6 glucose 106 Amylase is 57 lipase 95 urine specific gravity 1.005 pH is 7 Patient has received normal saline 2 L IV also 4 mg of morphine and Phenergan 12.5 mg. Patient states he is now having suprapubic abdominal pain patient has been belching no obvious vomiting in the emergency room. Will go ahead and obtain acute abdominal series on this patient he has had extensive workups. . 10/01/17 23:06 Acute abdomen series (my read ) large amount of air within the bowel. Patient is improved but still with lower abdominal pain. Will go ahead and obtain CT of the abdomen to rule out obstruction. 10/02/17 00:34 CT of the patient's abdomen no acute inflammatory process no obstruction. Patient states he still feels ill having pain in his lower abdomen. Patient has had multiple CTs of the abdomen he apparently has had a recent sigmoidoscopy he's had a recent HIDA scan. Will discuss case with Dr. Marie lead quality control technician for Dr. Keller. 10/02/17 00:41 I discussed the patient's case with Dr. Marie who is lead quality control technician for Dr. Keller. Will place patient on observation provide IV fluids. Patient mildly low on his potassium will add potassium to his IV. Will continue with Zofran when necessary vomiting. Morphine for pain. Keep patient nothing by mouth. - Departure Time of Disposition: 00:42 Departure Disposition: Observation Clinical Impression: Abdominal pain Qualifiers: Abdominal location: lower abdomen, unspecified Qualified Code(s): R10.30 - Lower abdominal pain, unspecified Vomiting Qualifiers: Vomiting type: unspecified Vomiting Intractability: unspecified Nausea presence : with nausea Qualified Code(s): R11.2 - Nausea with vomiting, unspecified Condition: Fair Critical Care Time: No Referrals: MEHDI KELLER MD [Primary Care Provider] -
[2017-10-01] MEDS ORDERED: Sodium Chloride 0.9% 1000 ML 1,000 ML ONE ×2 (20:03→20:43)
[2017-10-01 20:15] LABS: BASOPHIL % 0.2 % (0.0-0.4); Basophil (Absolute #) 0.02 (0-0.4); Eosinophil (Absolute #) 0.25 (0-0.5); Granulocytes % 61.3 % (36.0-66.0); Hematocrit 40.8 % (42-50); Hemoglobin 14.6 gm/dl (12.5-18.0); Lymphocytes % 26.4 % (24.0-44.0); Mean Cell Volume 87.9 fl (78-100); Mean Corpuscular Hemoglobin 31.5 pg (26-32); Mean Corpuscular Hgb Concent. 35.8 g/dl (32-36); Mean Platelet Volume 9.5 fl (6-9.5); Monocyte (Absolute #) 0.76 (0.0-1.3); Monocytes % 9.1 % (0.0-12.0); Platelet Count 234 K/mm3 (150-450); Red Blood Count 4.64 M/mm3 (4.1-5.6); Red Cell Distribution Width 12.9 % (11.5-14.0); White Blood Count 8.3 K/mm3 (4.0-10.5)
[2017-10-01 20:33] LABS: ALBUMIN 4.4 g/dL (3.5-5.0); ALKALINE PHOSPHATASE 100 U/L (38-126); AMYLASE 57 U/L (30-110); ANION GAP 15.1 MEQ/L (5-15); BLOOD UREA NITROGEN 7 mg/dL (9-20); CHLORIDE 90 mmol/L (98-107); Calcium 9.7 mg/dL (8.4-10.2); Carbon Dioxide 27 mmol/L (22-30); Creatinine 1 0.69 mg/dL (0.66-1.25); Glucose 106 mg/dL (74-106); LIPASE 95 U/L (23-300); Potassium 3.4 mmol/L (3.5-5.1); SGOT/AST 13 U/L (17-59); SGPT/ALT 16 U/L (0-50); SODIUM 129 mmol/L (137-145); Total Protein 7.1 g/dL (6.3-8.2)
[2017-10-01 20:49] LABS: Appearance CLEAR (CLEAR); Bilirubin NEGATIVE (NEGATIVE); Blood NEGATIVE Ery/ul (0-5); Glucose NEGATIVE (NEGATIVE); Ketones NEGATIVE (NEGATIVE); Leukocyte Esterase NEGATIVE (NEGATIVE); Nitrite NEGATIVE (NEGATIVE); Protein,Urine Dip NEGATIVE (Negative); Specific Gravity 1.005 (1.005-1.025); Urobilinogen NORMAL mg/dL (0-1)
[2017-10-01] MEDS ORDERED: MORPHINE SULFATE 4 MG INJ IV ONE (21:32)
[2017-10-01] MEDS ORDERED: Phenergan 25 MG INJ IV ONE (21:32)
[2017-10-01] MEDS ORDERED: Phenergan 25 MG INJ ONE (21:33)
[2017-10-01] MEDS ORDERED: MORPHINE SULFATE 4 MG INJ ONE (21:35)
[2017-10-02] MEDS ORDERED: MORPHINE SULFATE 4 MG INJ IV PRN (00:59)
[2017-10-02] MEDS: Sodium Chloride 0.9% W/ 20 mEq KCl/LITER 1,000 ML IV SCH ×3 (01:31→20:29)
[2017-10-02] MEDS: Zofran 4 MG/2 ML VIAL IV PRN ×2 (05:53→17:55)
[2017-10-02 06:05] LABS: BASOPHIL % 0.5 % (0.0-0.4); Basophil (Absolute #) 0.03 (0-0.4); Eosinophil % 4.8 % (0.00-5.0); Eosinophil (Absolute #) 0.31 (0-0.5); Granulocyte Absolute (ANC) 3.69 (1.4-6.9); Granulocytes % 57.5 % (36.0-66.0); Hemoglobin 13.4 gm/dl (12.5-18.0); Lymphocyte (Absolute #) 1.78 (1.0-4.6); Lymphocytes % 27.7 % (24.0-44.0); Mean Cell Volume 89.4 fl (78-100); Mean Corpuscular Hemoglobin 31.5 pg (26-32); Mean Corpuscular Hgb Concent. 35.3 g/dl (32-36); Mean Platelet Volume 9.7 fl (6-9.5); Monocyte (Absolute #) 0.61 (0.0-1.3); Monocytes % 9.5 % (0.0-12.0); Platelet Count 211 K/mm3 (150-450); Red Blood Count 4.25 M/mm3 (4.1-5.6); Red Cell Distribution Width 13.1 % (11.5-14.0); White Blood Count 6.4 K/mm3 (4.0-10.5)
[2017-10-02 06:38] LABS: ALBUMIN 3.8 g/dL (3.5-5.0); ALKALINE PHOSPHATASE 88 U/L (38-126); AMYLASE 64 U/L (30-110); ANION GAP 13.7 MEQ/L (5-15); BLOOD UREA NITROGEN 5 mg/dL (9-20); CHLORIDE 103 mmol/L (98-107); Calcium 9.3 mg/dL (8.4-10.2); Carbon Dioxide 26 mmol/L (22-30); Creatinine 1 0.57 mg/dL (0.66-1.25); Glucose 100 mg/dL (74-106); LIPASE 74 U/L (23-300); Potassium 3.9 mmol/L (3.5-5.1); SGOT/AST 12 U/L (17-59); SGPT/ALT 14 U/L (0-50); SODIUM 139 mmol/L (137-145); Total Protein 6.6 g/dL (6.3-8.2)
[2017-10-02] MEDS ORDERED: Ventolin Hfa MDI IH PRN (09:27)
[2017-10-02] MEDS ORDERED: PROVENTIL COMMON CANISTER IH PRN (09:33)
[2017-10-02] MEDS ORDERED: NON-FORMULARY ITEM (Cyclobenzaprine Hcl [Flexeril] 10 MG) PO SCH (10:00)
[2017-10-02] MEDS ORDERED: Zestril 5 MG PO SCH (10:00)
[2017-10-02] MEDS ORDERED: xanAX 0.5 MG PO PRN (10:00)
--- NOTE | 2017-10-02 10:00 | PCM.HP ---
History of Present Illness - Chief Complaint Chief Complaint: Abdominal pain, vomiting Date: 10/02/17 History of Present Illness: is a 57 year old male. who presented to the ER with severe abdominal pain and vomiting and weight loss. He has had persistent difficulty with weight loss and abdominal pain that seems to have started in May. He was diagnosed with high cholesterol and started on medication and discused diet changes his weight was 261 and he stopped drinking alcohol which he had done about 6 beers per day for many years and started eating only healthy foods no carbs or sweets or pop. He then became constipated resulting in abdominal pain and had a colonoscopy that was unremarkable and has contineud to have worsening abdominal pain and became very severe yesterday and was associated wtih vomiting that was new yesterday. He has not had any sick contacts continues to have constipation and uses miralax every day and ex-lax or docusate every other day an no association between the medications and the pain. He continues to loose weight and is down to 224 lb from 261 in May. He states he is unable to eat due to the pain which currently his around the umbilicus but has been in several different places and he feels like he is bloated and full and tight in his abdomen all over. He has been overwhelmed with the symptoms and is tearful at times. He has a history of panic attacks that were severe and with his mother's 10 years ago he use to have them to the point he would take off running out of his house as fast as he could down the road and his family would come pick him up. He has a long history of these type of panic attacks and has history of being worried. He was treaed with alprazolam 10 years ago around his mother's with the alprazolam but otherwise has never been treated for anxiety. He is afraid he is going to miss something on his diagnosis like she did when she of cancer because she kept putting off going to the doctor. He no longer works and he stays at home during the day while his works and tries to do things around the house but has difficulty staying busy during the day and does begin to worry about things more. He has had extensive workup with negative gallbladder u/s and hida scan recently. multiple CT of the abdomen and pelvis with only incidental finding of small chronic stomach diverticulum. Normal colonoscopy 09/01 with just hyuperplastic polyps. PSA normal 05/2017 and blood work has been unremarkable except intermittent mild hyponatremia for which he admits to drinking large amounts of water. - Review of Systems Constitutional: Fatigue, No Fever, No Chills Eyes: No Symptoms Ears, Nose, & Throat: No Symptoms Respiratory: No Cough, No Short Of Breath Cardiac: No Chest Pain, No Edema, No Syncope Abdominal/Gastrointestinal: Abdominal Pain, Nausea, Vomiting, No Diarrhea Genitourinary Symptoms: No Dysuria Musculoskeletal: No Back Pain, No Neck Pain Skin: No Rash Neurological: No Dizziness, No Focal Weakness, No Sensory Changes Psychological: No Symptoms Endocrine: No Symptoms Hematologic/Lymphatic: No Symptoms Immunological/Allergic: No Symptoms Medications & Allergies Home Medications: Home Medication List Hydrochlorothiazide 25 mg [hydroDIURIL 25 MG] 25 mg DAILY 06/03/14 [ History Confirmed 10/01/17] Lisinopril 5 mg [Zestril 5 MG] 40 mg DAILY 06/03/14 [History Confirmed ] Albuterol Sulfate [Proventil Hfa] 2 puffs IH Q12H PRN PRN 12/27/14 [History Confirmed 10/01/17] Esomeprazole Magnesium [Nexium 24Hr] 2 tab PO DAILY 12/27/14 [History Confirmed 10/01/17] Cyclobenzaprine HCl [Flexeril] 10 mg PO TID 10 Days #30 tablet 09/28/17 [Rx Confirmed 10/01/17] Montelukast Sodium 10 mg [Singulair 10 MG] 10 mg PO DAILY 09/28/17 [History Confirmed 10/01/17] Hydrocodone/Acetaminophen [[place] 5-325 Tablet] 1 each PO Q6H PRN PRN 10/01/17 [ History Confirmed 10/01/17] Allergies/Adverse Reactions: Allergies Allergy/AdvReac Type Severity Reaction Status Date / Time codeine AdvReac Mild Nausea Verified 10/01/17 19:34 - Past Medical History Past Medical History: Yes Neurological History: No Pertinent History ENT History: Cataracts Cardiac History: Hypertension Respiratory History: No Pertinent History Endocrine Medical History: No Pertinent History Musculoskelatal History: No Pertinent History GI Medical History: GERD History: No Pertinent History Pyscho-Social History: No Pertinent History Male Reproductive Disorders: No Pertinent History Comment: SEASONAL ALLERGIES, R eye possible cataract forming. chronic constipation, freqeunt nausea and vomiting - Past Surgical History Past Surgical History: Yes Neuro Surgical History: No Pertinent History Cardiac History: No Pertinent History Respiratory Surgery: No Pertinent History GI Surgical History: Appendectomy Genitourinary Surgical Hx: No Pertinent History Musculskeletal Surgical Hx: Joint Replacement, Other Male Surgical History: No Pertinent History Other Surgical History: Left broken arm surgical repair "screw and plate in there" lower arm, nick. hip replaced,left rotator cuff repair - Social History Smoking Status: Former smoker How long have you smoked: 13 years + Exposure to second hand smoke: No Alcohol: None Drug Use: none - Physical Exam Vital Signs: Vital Signs - 24 hr Temp Pulse Resp BP Pulse Ox 10/02/17 06:53 97.5 F 79 18 116/59 99 10/02/17 03:50 97.7 F 68 16 122/73 100 10/02/17 02:22 97.8 F 69 16 130/79 97 10/02/17 00:42 100 10/02/17 00:42 68 16 117/68 100 10/01/17 23:13 82 20 160/88 99 10/01/17 22:17 94 H 18 141/90 10/01/17 20:50 82 20 150/89 100 10/01/17 20:44 78 24 149/103 100 10/01/17 19:22 97.6 F 79 18 164/83 100 General Appearance: no apparent distress, alert, anxiety, other (tearful at times. at bedside) Neurologic Exam: alert, oriented x 3, cooperative, normal mood/affect, nml cerebellar function, nml station & gait, sensation nml, No motor deficits Eye Exam: PERRL/EOMI, eyes nml inspection Ears, Nose, Throat Exam: normal ENT inspection, pharynx normal, moist mucous membranes Neck Exam: normal inspection, non-tender, supple, full range of motion Respiratory Exam: normal breath sounds, lungs clear, No respiratory distress Cardiovascular Exam: regular rate/rhythm, normal heart sounds, normal peripheral pulses Gastrointestinal/Abdomen Exam: soft, normal bowel sounds, tenderness (umbilical pain with light touch but no rebound or guarding on inspection of any other areas. no suprapubic pain), No mass Back Exam: normal inspection, normal range of motion, No CVA tenderness, No vertebral tenderness Extremity Exam: normal inspection, normal range of motion, pelvis stable Skin Exam: normal color, warm, dry, No rash Lymphatic Exam: No adenopathy Results - Labs Lab/Micro Results: Lab Results-Last 24 Hours 10/02/17 10/02/17 Range/Units 05:30 05:30 WBC 6.4 (4.0-10.5) K/mm3 RBC 4.25 (4.1-5.6) M/mm3 Hgb 13.4 (12.5-18.0) gm/dl Hct 38.0 L (42-50) % MCV 89.4 (78-100) fl MCH 31.5 (26-32) pg MCHC 35.3 (32-36) g/dl RDW 13.1 (11.5-14.0) % Plt Count 211 (150-450) K/mm3 MPV 9.7 H (6-9.5) fl Gran % 57.5 (36.0-66.0) % Eos # (Auto) 0.31 (0-0.5) Absolute Lymphs (auto) 1.78 (1.0-4.6) Absolute Monos (auto) 0.61 (0.0-1.3) Lymphocytes % 27.7 (24.0-44.0) % Monocytes % 9.5 (0.0-12.0) % Eosinophils % 4.8 (0.00-5.0) % Basophils % 0.5 (0.0-0.4) % Absolute Granulocytes 3.69 (1.4-6.9) Basophils # 0.03 (0-0.4) Sodium 139 (137-145) mmol/L Potassium 3.9 (3.5-5.1) mmol/L Chloride 103 (98-107) mmol/L Carbon Dioxide 26 (22-30) mmol/L Anion Gap 13.7 (5-15) MEQ/L BUN 5 L (9-20) mg/dL Creatinine 0.57 L (0.66-1.25) mg/dL Estimated GFR > 60.0 ML/MIN Glucose 100 (74-106) mg/dL Calcium 9.3 (8.4-10.2) mg/dL Total Bilirubin 0.50 (0.2-1.3) mg/dL AST 12 L (17-59) U/L ALT 14 (0-50) U/L Alkaline Phosphatase 88 (38-126) U/L Serum Total Protein 6.6 (6.3-8.2) g/dL Albumin 3.8 (3.5-5.0) g/dL Amylase 64 (30-110) U/L Lipase 74 (23-300) U/L Assessment/Plan (1) Intractable abdominal pain Current Visit: Yes Status: Acute Onset Date: ~08/19/17 Assessment & Plan: no vomiting today will continue pain control advance diet will make npo after midnight for consideration for EGD evaluation of the gastric diverticulum and intractable abdominal pain Given his nonspecific but severe symptoms with extensive negative work up this far, 40 lb weight loss, and psychiatric manifestations as well, will rule out acute intermittent porphyria with spot urine test for urine PBG and porphyrins with him currently symptomatic will also start treating his anxiety with alprazolam prn and start sertraline 25 mg hs tonight. It appears very possible this current symptoms could be manifestation of his severe anxiety and panic attacks that he has had for many years and previously he had been a moderate to heavy beer drinker until abruptly stopping just prior to the start of the symptoms when he was told about his high cholesterol. Code(s): R10.9 - UNSPECIFIED ABDOMINAL PAIN (2) Hyponatremia Current Visit: Yes Status: Resolved Onset Date: ~08/19/17 Code(s): E87.1 - HYPO-OSMOLALITY AND HYPONATREMIA (3) Anxiety Current Visit: Yes Status: Chronic Code(s): F41.9 - ANXIETY DISORDER, UNSPECIFIED (4) Panic attacks Current Visit: Yes Status: Acute Code(s): F41.0 - PANIC DISORDER [EPISODIC PAROXYSMAL ANXIETY] (5) Weight loss Current Visit: Yes Status: Acute (6) Essential hypertension Current Visit: Yes Status: Chronic Code(s): I10 - ESSENTIAL (PRIMARY) HYPERTENSION
--- NOTE | 2017-10-02 10:12 | XRAY ---
Indication: Abdominal pain 2 months. Reflux and constipation. Multiple contiguous axial images obtained through the abdomen and pelvis using 80 cc Isovue 370 contrast only. Comparison: September 28, 2017. Lung bases remain clear. Heart is not enlarged. Again bilateral hip prostheses produces extreme beam artifact limiting images through the pelvis. Noncontrasted stomach and bowel loops appear nonobstructed. Stable small gastric diverticulum, appendectomy, and scattered colonic diverticulosis. Stable mild diffuse scattered colonic fecal debris and previous appendectomy. No free fluid/air. Stable left renal cysts Remaining liver, gallbladder, pancreas, spleen, adrenal glands, kidneys, ureters, and bladder appear unremarkable. Stable remains mild aortoiliac calcifications without AAA. Osseous structures intact again with mild multilevel degenerative spondylosis. Impression: 1. Again images through the pelvis limited due to artifact from bilateral hip prosthesis. 2. Stable fecal stasis without obstruction, colonic diverticulosis, left renal cysts, and small gastric diverticulum. 3. No new or acute intra-abdominal/pelvic abnormalities on this noncontrast exam. Comment: Preliminary interpretation was made by [facility]. No discrepancy. CT DI 22.79
--- NOTE | 2017-10-02 10:14 | XRAY ---
Indication: Abdominal pain 2 months. Comparison: August 27, 2017. 2 views of the abdomen again demonstrates nonspecific nonobstructed bowel gas pattern. No focal bowel dilatation or free air. Solid organs unremarkable. Osseous structures intact again with mild multilevel degenerative spondylosis and bilateral total hip arthroplasty. Single AP chest again demonstrates normal heart and lungs. Bony thorax intact again with mild degenerative changes. Impression: 1. Stable nonacute nonobstructed abdomen. 2. Stable nonacute one view chest.
[2017-10-02] MEDS: hydroDIURIL 25 MG PO SCH (10:39)
[2017-10-02] MEDS: Zestril 20 MG PO SCH (10:39)
[2017-10-02] MEDS: Protonix 40MG Tablet PO SCH (10:40)
[2017-10-02] MEDS: Singulair 10 MG PO SCH (10:40)
[2017-10-02] MEDS: Cyclobenzaprine 10 MG PO SCH ×3 (10:46→21:30)
[2017-10-02] MEDS: Miralax Powder 17GM PACKET PO PRN (20:25)
[2017-10-02] MEDS: ZOLOFT 50 MG TABLET PO SCH (21:31)
[2017-10-02] MEDS: NORCO 5/325 MG PO PRN (21:32)
[2017-10-03] MEDS: Sodium Chloride 0.9% W/ 20 mEq KCl/LITER 1,000 ML IV SCH ×2 (06:13→15:50)
[2017-10-03] MEDS: NORCO 5/325 MG PO PRN ×3 (06:20→19:15)
--- NOTE | 2017-10-03 08:30 | PCM.NOTE ---
Date and Time: 10/03/17825 Subjective Assessment: patient appears very anxious this morning, ate a regular diet last night for dinner and had a normal bowel movement so his abdomen is no longer hurting nor a concern to him. He is now complaining of severe pressure behind his eyes and is convinced his sinusitis is his problem. he did have a head CT in ER that showed sinus thickening. has an ENT appt in [place] on 10/05. he complains of burning of his face and pain radiating down both of his arms and tightness in his low back. Objective Exam General Appearance: no apparent distress, alert, anxiety Neurologic Exam: alert, oriented x 3, cooperative Skin Exam: normal color, warm, dry Respiratory Exam: normal breath sounds, lungs clear, No respiratory distress Cardiovascular Exam: regular rate/rhythm, normal heart sounds Gastrointestinal/Abdomen Exam: soft, No tenderness, No mass Extremity Exam: normal inspection, normal range of motion OBJECTIVE DATA Vital Signs: Vital Signs - 24 hr Temp Pulse Resp BP Pulse Ox 10/03/17 07:01 98.4 F 95 H 18 154/76 99 10/03/17 04:00 97.6 F 69 17 121/69 100 10/03/17 00:00 97.7 F 79 16 118/74 100 10/02/17 20:00 97.7 F 79 20 118/71 99 10/02/17 16:00 97.5 F 68 18 128/82 95 10/02/17 11:33 97.9 F 81 18 130/84 99 10/02/17 11:24 84 18 98 Pain Assessment - Last Documented Pain Intensity 6 Pain Scale Used 0-10 Pain Scale Intake and Output: Intake & Output 09/30/17 10/01/17 10/02/17 10/03/17 11:59 11:59 11:59 11:59 Intake Total 2168 3538 Output Total 850 2550 Balance 1318 988 Weight 102.1 kg 102.1 kg Lab Results: Lab Results-Last 24 Hours 10/02/17 Range/Units 16:11 Ur Random Creatinine 34.5 MG/DL Assessment/Plan (1) Acute sinusitis Current Visit: Yes Status: Acute Assessment & Plan: add levaquin and prednisone po at this time. Code(s): J01.90 - ACUTE SINUSITIS, UNSPECIFIED (2) Panic attacks Current Visit: Yes Status: Acute Assessment & Plan: symptoms seem to be particularly worrisome and I feel most of his problem is related to severe anxiety about his medication conditions, this seems to have started after he quit drinking. plan to add a low dose of po ativan since xanax seems to be ineffective at this time. Code(s): F41.0 - PANIC DISORDER [EPISODIC PAROXYSMAL ANXIETY] (3) Abdominal pain Current Visit: Yes Status: Acute Qualifiers: Abdominal location: lower abdomen, unspecified Qualified Code(s): R10.30 - Lower abdominal pain, unspecified Assessment & Plan: improved with a bowel movement, will continue with regular diet today. will likely need regular stool softener at home. Code(s): R10.9 - UNSPECIFIED ABDOMINAL PAIN
[2017-10-03] MEDS: Singulair 10 MG PO SCH (10:11)
[2017-10-03] MEDS: Protonix 40MG Tablet PO SCH (10:11)
[2017-10-03] MEDS: Levofloxacin 500 MG Tablet PO SCH (10:11)
[2017-10-03] MEDS: hydroDIURIL 25 MG PO SCH (10:11)
[2017-10-03] MEDS: DELTASONE 20 MG PO SCH (10:11)
[2017-10-03] MEDS: Zestril 20 MG PO SCH (10:11)
[2017-10-03] MEDS: Miralax Powder 17GM PACKET PO PRN (10:12)
[2017-10-03] MEDS ORDERED: Flonase NASAL NS SCH (11:00)
[2017-10-03] MEDS: Flonase NASAL NS SCH (13:34)
[2017-10-03] MEDS: Ativan 0.5 MG PO PRN ×2 (15:39→22:13)
[2017-10-03] MEDS: ZOLOFT 50 MG TABLET PO SCH (22:13)
[2017-10-04] MEDS: Sodium Chloride 0.9% W/ 20 mEq KCl/LITER 1,000 ML IV SCH (03:06)
--- NOTE | 2017-10-04 08:30 | PCM.DS ---
Discharge Summary Date of Admission: 10/02/17 00:54 Admitting Physician: MEHDI CRUZ Primary Care Provider: MEHDI CRUZ Allergies Allergies codeine Adverse Reaction (Mild, Verified 10/01/17 19:34) Nausea Hospital Summary - Hospital Course Hospital Course: patient was admitted with abdominal pain, has had extensive workup that has been negative. he is tolerating a regular diet and feeling much better. seems to have severe anxiety and obsess over symptoms of abd distension and bowel movements. having sinus problems, CT showed thickening so sees ENT on 10/05. has improved with levaquin. will continue levaquin and ativan for anxiety. - Vitals & Intake/Output Vital Signs: Vital Signs Temperature 96.8 F 10/04/17 07:16 Pulse Rate 84 10/04/17 07:16 Respiratory Rate 20 10/04/17 07:16 Blood Pressure 136/75 10/04/17 07:16 O2 Sat by Pulse Oximetry 99 10/04/17 07:16 Intake & Output: Intake & Output 10/01/17 10/02/17 10/03/17 10/04/17 11:59 11:59 11:59 11:59 Intake Total 2168 3778 1200 Output Total 850 2550 1800 Balance 1318 1228 -600 Weight 102.1 kg 102.1 kg 105.5 kg - Lab Result Diagrams: 10/02/17 05:30 10/02/17 05:30 - Radiology Exams Ordered Rad Exams-Entire Visit: Radiology Procedures Category Date Time Status KUB Stat Exams 10/03/17 22:08 Taken - Procedures and Test Procedures and Tests throughout Hospitalization: Therapy Orders & Screens 10/02/17 11:20 Respiratory Therapy Assessment ONCE Comment: Diagnosis: Abdominal pain, vomiting Discharge Exam General Appearance: no apparent distress Neurologic Exam: alert, oriented x 3 Skin Exam: normal color, warm Respiratory Exam: normal breath sounds, lungs clear, No respiratory distress Cardiovascular Exam: regular rate/rhythm, normal heart sounds Gastrointestinal/Abdomen Exam: soft, No tenderness, No mass Final Diagnosis/Problem List - Final Discharge Diagnosis/Problem (1) Acute sinusitis Current Visit: Yes Status: Acute (2) Panic attacks Current Visit: Yes Status: Acute (3) Abdominal pain Current Visit: Yes Status: Acute - Discharge Disposition: Home, Self-Care Condition: Good Prescriptions: New Lorazepam 0.5 mg [Ativan 0.5 MG] 0.5 mg PO Q6H PRN PRN #30 tablet PRN Reason: Anxiety Levofloxacin [Levofloxacin 500 MG Tablet] 500 mg PO DAILY #7 tablet Sertraline HCl 50 mg [Zoloft 50 mg Tablet] 50 mg PO DAILY #30 tab Continue Lisinopril 5 mg [Zestril 5 MG] 40 mg DAILY Hydrochlorothiazide 25 mg [hydroDIURIL 25 MG] 25 mg DAILY Albuterol Sulfate [Proventil Hfa] 2 puffs IH Q12H PRN PRN PRN Reason: Allergies Esomeprazole Magnesium [Nexium 24Hr] 2 tab PO DAILY Montelukast Sodium 10 mg [Singulair 10 MG] 10 mg PO DAILY Cyclobenzaprine HCl [Flexeril] 10 mg PO TID 10 Days #30 tablet Hydrocodone/Acetaminophen [[place] 5-325 Tablet] 1 each PO Q6H PRN PRN PRN Reason: Pain Follow up with: MEHDI CRUZ MD [Primary Care Provider] - 1 Week
--- NOTE | 2017-10-04 08:50 | XRAY ---
Indication: Possible bowel perforation. Comparison: October 01, 2017. Single upright KUB again demonstrates nonspecific nonobstructed bowel gas pattern with mild scattered colonic fecal debris. No focal bowel dilatation, obstruction, or free air. Solid organs unremarkable. Osseous structures intact again with multilevel degenerative spondylosis and bilateral total hip arthroplasty. Lung bases clear. Impression: Stable negative KUB with incidental findings. Comment: Preliminary interpretation was made by [facility]. No discrepancy.
[2017-10-04] MEDS: Zestril 20 MG PO SCH (08:59)
[2017-10-04] MEDS: Ativan 0.5 MG PO PRN (08:59)
[2017-10-04] MEDS: DELTASONE 20 MG PO SCH (08:59)
[2017-10-04] MEDS: Singulair 10 MG PO SCH (08:59)
[2017-10-04] MEDS: Levofloxacin 500 MG Tablet PO SCH (08:59)
[2017-10-04] MEDS: Flonase NASAL NS SCH (09:00)
[2017-10-04] MEDS: Protonix 40MG Tablet PO SCH (09:00)
[2017-10-04] MEDS: hydroDIURIL 25 MG PO SCH (09:00)
[2017-10-04 11:08] VITALS: BP 155/92; PULSE 86; O2SAT 97
== END 2017-10-04 11:25 | disposition home or self-care (01) ==
LOC: ED 19:17 → MED SURG 10-02 00:54
PROVIDERS: ADMIT Family Medicine; ATTEND Family Medicine
DX: J01.90 Acute sinusitis, unspecified (principal); R10.30 Lower abdominal pain, unspecified; E87.1 Hypo-osmolality and hyponatremia; I10 Essential (primary) hypertension; K21.9 Gastro-esophageal reflux disease without esophagitis; Z87.891 Personal history of nicotine dependence; F41.9 Anxiety disorder, unspecified; R63.4 Abnormal weight loss; Z68.41 Body mass index [BMI] 40.0-44.9, adult
CPT/HCPCS: 36000; 36415; 74018; 74022; 74177; 80053; 81002; 82150; 82570; 83690; 84110; 84311; 85025; 93005; 93268; 94760; 96360; 96361; 96374; 96375; 99285; J2270; J2405; J2550; A9270-GY; G0378